=== PATIENT | female | born 1945 | race Caucasian/White ===

== ENCOUNTER 2019-08-19 12:05 | Emergency (ER) | payer MEDICARE, OTHER, SELFPAY ==
[2019-08-19 12:08] VITALS: BP 125/74; PULSE 80; RESP 18; TEMP 36.6; O2SAT 100; BMI 23.9
[2019-08-19 12:37] LABS: Absolute Lymphocyte Count 2.02 X10^3/uL (0.83-4.51); Basophil# 0.04 X10^3/uL; Basophil% 0.8 % (0-1); Eosinophil# 0.27 X10^3/uL; Eosinophils% 5.7 % (0-5); Hematocrit 39.8 % (37-47); Hemoglobin 13.1 g/dL (12.0-15.0); Lymphocyte # 2.02 X10^3/ul (4.0); Lymphocyte % 42.5 % (19-41); Mean Corp Hgb Conc 32.9 g/dL (32-36); Mean Corpuscular Hgb 32.4 pg (27.0-32.0); Mean Corpuscular Volume 98.5 fL (81-99); Mean Platelet Vol. 9.7 fl (6.2-12.0); Monocyte# 0.37 X10^3/uL; Monocyte% 7.8 % (0-10); NRBC Flagged by Analyzer 0 % (0-5); Neutrophil # 2.03 X10^3/uL (2.7-7.7); Neutrophil % 42.8 % (47-70); Platelet Count 236 K/mm3 (150-450); RBC Distribution Width CV 12.7 % (11.6-14.6); RBC Distribution Width SD 45.9 fl (35.1-43.9); Red Blood Count 4.04 M/mm3 (4.2-5.4); White Blood Count 4.8 K/mm3 (4.4-11.0)
[2019-08-19 12:40] VITALS: BP 121/80; PULSE 88; RESP 23; O2SAT 100
[2019-08-19 12:56] VITALS: BP 122/97; BP 125/77; BP 129/89; PULSE 81; PULSE 83
[2019-08-19 12:57] LABS: International Normalized Ratio 2.4; Prothrombin Time (Protime)PT. 25.8 SECONDS (11.7-14.9)
[2019-08-19 12:58] LABS: Partial Thromboplast Time 32.5 Seconds (24.1-36.2)
[2019-08-19 13:05] LABS: Anion Gap 6 (5-15); BUN 11 mg/dL (7-18); BUN/Creat Ratio 12.7 RATIO (10-20); Calcium,Total 9.7 mg/dL (8.5-10.1); Chloride 109 mmol/L (98-107); Creatinine, Serum 0.87 mg/dL (0.55-1.02); EST Glomerular Filtration Rate 68 mL/min (>60); Est Glom Filt Rate - Afr Amer 82 mL/min (>60); Estimated Creatinine Clearance 47.64 ml/min; Glucose 92 mg/dL (74-106); Potassium 3.4 mmol/L (3.5-5.1); Sodium Level 141 mmol/L (136-145)
--- NOTE | 2019-08-19 13:32 | ED.VISSUMM ---
- ER Visit Summary Date of Service: 08/19/19 Chief Complaint: Blood in stool History of Present Illness: The patient is a [address] Dias. She is on Coumadin for atrial fibrillation. She reports that twice a week she takes Dulcolax because otherwise she remains constipated. This morning she had a formed stool without blood. That she then had a loose stool that had bright red blood mixed with it. She denies any rectal pain. She does report that she has a cramping suprapubic pain is 10 on 10 at worst and 4-10 currently. Is worsened by nothing relieved by nothing. She had a colonoscopy in October [address] Emery. She denies any other complaints. Physical Examination: Vitals: Stable. Afebrile. General: Well-nourished and well-developed. Head: Normocephalic atraumatic. Neck: Supple, no lymphadenopathy. No JVD. Nontender. Cardiovascular: Regular rate and rhythm. No murmurs. Respiratory: No respiratory distress. Clear to auscultation bilaterally. Abdominal: Soft, nontender, nondistended, normal bowel sounds. No guarding, rebound, or peritoneal signs. Rectal: She has a hemorrhoid at 12:00 that appears to be the source of the bleeding. Back: Nontender. Extremities: Nontender, no edema. Skin: Normal color, no rash. Neurologic: Alert and oriented ?3. Cranial nerves II through XII are intact. Normal strength and sensation. Psych: Normal affect. Test Results: CBC shows a hemoglobin of 13.1. This was actually 11.1 July 27, 2017 which the last CBC we have. Chem-7 shows a potassium of 3.4 and chloride of 109. INR is 2.4. PTT is 32.5. Emergency Department Course and Treatment: Patient had negative orthostatic vital signs. She is resting comfortably. Treatment Plan: I had a prolonged scratch the patient by treatment options. She does understand that if she was admitted to the hospital we would essentially just repeat her hemoglobin. She does not want to do this. She understands that if she has worsening bleeding at home that she can come back to the hospital he be admitted at any time. Otherwise she is instructed to follow-up Dr. Emery soon as possible. Follow-up with Dr. Dias in 3 to 5 days for repeat hemoglobin. Disposition: To home in improved and stable condition. Impression: 1. Stable lower GI bleed. 2. Coumadin coagulopathy. This note was generated with [employer] dictation software. It may contain incorrect words, spelling, and punctuation that were not noted in review of the chart prior to signing ED Disposition - Plan for ED Patient: Disposition: Home or Assisted Living Instructions: RECTAL BLEED, Stable Referrals: Ilia Stone DO [Primary Care Provider] - 3-5 Days Kwaku Emery MD [NON-STAFF] - As soon as possible
== END 2019-08-19 13:46 | disposition home or self-care (01) ==
PROVIDERS: Emergency Provider Emergency Medicine; Family Provider Preventive Medicine Occupational Medicine; PCP Preventive Medicine Occupational Medicine
DX: K92.1 Melena (principal); T45.515A Adverse effect of anticoagulants, initial encounter; I48.91 Unspecified atrial fibrillation; I25.10 Atherosclerotic heart disease of native coronary artery without angina pectoris; K59.00 Constipation, unspecified; Z95.1 Presence of aortocoronary bypass graft; Z95.0 Presence of cardiac pacemaker; Z79.01 Long term (current) use of anticoagulants; Z79.899 Other long term (current) drug therapy; Z86.73 Personal history of transient ischemic attack (TIA), and cerebral infarction without residual deficits
CPT/HCPCS: 80048; 85025; 85610; 85730; 96360; 99285; J7040; A4216

== ENCOUNTER 2020-08-07 08:46 | Inpatient (IN) | payer MEDICARE, OTHER, SELFPAY ==
[2020-08-07] VITALS (9 sets, daily range): BP systolic 108–118; BP diastolic 62–80; PULSE 70; RESP 15–23; TEMP 36.1–37.6; O2SAT 90–98; BMI 23.9; BMI 24.3; BMI 24.4
--- NOTE | 2020-08-07 09:13 | ED.DCSUM_ITS ---
- ER Visit Summary Date of Service: 08/07/20 Chief Complaint: Generalized weakness. I think I have Covid. History of Present Illness: The patient is a 74 F 3 of the pretension, CAD, high cholesterol and hypothyroidism. Also A. fib on Coumadin. Prior CABG. Patient states for last 11 days she had generalized weakness. Fever as high as 101 with chills. Mild dyspnea. No significant cough. No nausea, vomiting or diarrhea. No melena. No abdominal pain. She denies any dysuria. She lives at home with her . She does not have any known Covid exposure. Physical Examination: Older female no acute distress. Vital signs stable she is borderline hypoxic with a pulse ox of 90%. She is in no distress. Afebrile. HEENT exam unremarkable. Moist mucous membranes. Neck nontender no lymphadenopathy. Lungs clear to auscultation bilaterally. Heart A. fib rate about 70. No murmur. Abdomen soft nontender normal bowel sounds no peritoneal signs. Patient moving all 4 extremities. Nontender. No edema. Equal symmetrical client partner strength. Dorsi plantarflexion intact. Back nontender. Neurologically she is awake and alert with no focal motor deficits. When I walked in the room patient was in a wheelchair she did need my assistance to stand up and get in the bed. Test Results: Chest x-ray portable 1 view shows infiltrates on the right side consistent with Covid. Also left-sided pacer defibrillator. This was also interpreted by the radiologist along with me and agrees. There is also chronic changes. CBC shows a white count of 3. Hemoglobin 12. No bands. Chemistries show a hyponatremia sodium 129. Normal BUN, creatinine and gap. Liver enzymes elevated alk phos of 172. PT/INR both elevated at 72 and 8.7 for a supratherapeutic coagulopathy. Again she is on Coumadin. Lactate normal. 1.7.-Antigen Covid test is positive. Emergency Department Course and Treatment: Her female pulse ox of 90% is consistent with hypoxia with [id number] symptoms. After her sodium returned she will be started on normal saline IV. Treatment Plan: Repeat exam no change. Patient is generally weak which is overall prior from her Covid. She is also hyponatremic. I do not think she will do well at home. And I will asked the hospitalist to admit her. Disposition: Admission Impression: Acute generalized weakness COVID-19 positive pneumonitis with hypoxia Supratherapeutic coagulopathy Hyponatremia History of A. fib on Coumadin History of prior CABG This note was generated with [employer] dictation software. It may contain incorrect words, spelling, and punctuation that were not noted in review of the chart prior to signing ED Disposition - Plan for ED Patient: Referrals: Ilia Stone DO [Primary Care Provider] -
[2020-08-07 09:58] LABS: Absolute Lymphocyte Count 0.89 X10^3/uL (0.83-4.51); Absolute Neutrophil Count 2.7 X10^3/uL (2.0-7.7); Basophil# 0.01 X10^3/uL; Basophil% 0.3 % (0-1); Eosinophil# 0.01 X10^3/uL; Eosinophils% 0.3 % (0-5); Hematocrit 35.2 % (37-47); Lymphocyte # 0.89 X10^3/ul (4.0); Lymphocyte % 23.3 % (19-41); Mean Corp Hgb Conc 34.1 g/dL (32-36); Mean Corpuscular Hgb 32.8 pg (27.0-32.0); Mean Corpuscular Volume 96.2 fL (81-99); Mean Platelet Vol. 10.7 fl (6.2-12.0); Monocyte# 0.15 X10^3/uL; Monocyte% 3.9 % (0-10); NRBC Flagged by Analyzer 0 % (0-5); Neutrophil # 2.74 X10^3/uL (2.7-7.7); Neutrophil % 71.7 % (47-70); Platelet Count 242 K/mm3 (150-450); RBC Distribution Width CV 13.1 % (11.6-14.6); RBC Distribution Width SD 46.6 fl (35.1-43.9); Red Blood Count 3.66 M/mm3 (4.2-5.4); White Blood Count 3.8 K/mm3 (4.4-11.0)
--- NOTE | 2020-08-07 10:02 | RAD_ITS ---
STUDY: X-RAY CHEST REASON FOR EXAM: Female, 74 years old. LOSS OF TASTE AND SMELL X 11 DAYS, COUGH TECHNIQUE: Single AP portable view of the chest. COMPARISON: None. FINDINGS: EKG electrodes are seen. Mild increased markings with areas of confluence in the peripheral aspect of the right upper lobe as well as in the right middle lobe. The left lung is clear. There is no demonstrated pleural abnormality. Sternal cerclage wires and vascular clips are present from a prior sternotomy and coronary artery bypass graft procedure (CABG). A left-sided dual-chamber pacemaker is seen. Mild cardiomegaly. Normal mediastinum and nickolas. Normal visualized pulmonary arteries. There is atherosclerotic tortuosity of the aortic arch and descending thoracic aorta. Normal visualized thoracic spine. Normal visualized ribs, clavicles, and shoulders. There is no demonstrated abnormality of the visualized soft tissue structures of the upper abdomen. RAD/Chest 1 View (Portable) IMPRESSION: Mild increased markings with areas of confluence in the peripheral aspect of the right upper lobe as well as in the right middle lobe. Follow-up is recommended. Electronically Signed: Emir Garcia, at 10:40 EST , Service support ,
[2020-08-07 10:06] LABS: Prothrombin Time (Protime)PT. 72.9 SECONDS (11.7-14.9)
[2020-08-07 10:12] LABS: International Normalized Ratio 8.7
[2020-08-07 10:15] LABS: ALB/GLOB Ratio 0.8 RATIO (0.9-2.4); AST(SGOT) 50 U/L (15-37); Alanine Aminotransfer ALT/SGPT 30 U/L (13-56); Albumin, Serum 3.1 g/dL (3.2-5.0); Alkaline Phosphatase 172 U/L (45-117); Anion Gap 7 (5-15); BUN 8 mg/dL (7-18); BUN/Creat Ratio 10.1 RATIO (10-20); Calcium,Total 9.4 mg/dL (8.5-10.1); Chloride 96 mmol/L (98-107); Creatinine, Serum 0.79 mg/dL (0.55-1.02); EST Glomerular Filtration Rate 75 mL/min (>60); Est Glom Filt Rate - Afr Amer 91 mL/min (>60); Estimated Creatinine Clearance 40.83 ml/min; Globulin 3.8 g/dL (2.2-4.2); Glucose 86 mg/dL (74-106); Potassium 3.9 mmol/L (3.5-5.1); Protein, Total 6.9 g/dL (6.4-8.2); Sodium Level 129 mmol/L (136-145)
[2020-08-07 10:34] LABS: Lactic Acid 1.7 mmol/L (0.4-1.9)
--- NOTE | 2020-08-07 11:22 | HP.PCM_ITS ---
History of Present Illness Date of Admission: 08/07/20 Chief Complaint: weakness, The patient is a 74 year old F with a past medical history as outlined was admitted through the ED on 08/07/2020 with a complaint of generalized weakness as well as an antecedent history of fever and mild shortness of breath. Patient says she thinks she has Covid. She had had the symptoms as mentioned for 11 days prior to admission and said her fever was as high as 101 Fahrenheit with chills as well as mild dyspnea. However she denied any cough, palpitations or dizziness, nausea vomiting or diarrhea. Review of systems otherwise negative. On admission in the ED, pulse ox was 90% on room air. It will show temperature of 97.3 Fahrenheit with blood pressure 112/64, pulse rate of 70 and respiratory rate of 23. Chemistry showed sodium of 129 with potassium of 3.9. AST mildly elevated at 50 and ALP was 172 but ALT was within normal limits. CBC shows WBC of 3.8 and hemoglobin of 12 with platelets of 242. Chest x-ray showed mild increased markings with areas of confluence in the peripheral aspect of the right upper lobe as well as in the right middle lobe. Covid antigen test done was positive. She is being admitted to be managed for COVID-19 infection. [] Past Medical History Allergies fentanyl Allergy (Verified 08/07/20 08:50) Other MADE ME BREATHE LESS nitrofurantoin [From Macrodantin] Allergy (Verified 08/07/20 08:50) Unknown Sulfa (Sulfonamide Antibiotics) Allergy (Verified 08/07/20 08:50) Unknown Home Medications: Ambulatory Orders Medication Instructions Recorded Atorvastatin Calcium [Lipitor] 10 mg PO QHS 08/19/19 Levothyroxine Sodium 100 mcg PO DAILY 08/19/19 Lorazepam 1 mg PO BID PRN 08/19/19 Primidone 250 mg PO BID 08/19/19 Propranolol HCl 20 mg PO QHS 08/19/19 Propranolol HCl [Inderal] 10 mg PO DAILY 08/19/19 Warfarin Sodium 15 mg PO DAILY 08/19/19 Ascorbic Acid [Vitamin C] 500 mg PO DAILY 08/07/20 Aspirin [Aspirin, Baby] 81 mg PO DAILY@0800 08/07/20 Latanoprost [Xalatan] 2.5 ml OP DAILY 08/07/20 Paroxetine [Paxil] 40 mg PO DAILY 08/07/20 Psychiatric History: No pertinent psych hx Lives: Spouse/ Significant Other Smoking Status: Never smoker Alcohol: None Drugs: None - *Family History Maternal History Items: No pertinent history Review of Systems Constitutional: Reports: Anorexia, Chills, Fever, Malaise, Weakness, Fatigue Eyes: Denies: Blurred vision HEENT: Denies: Head Aches, Sinus Congestion, Sinus Drainage Cardiovascular: Denies: Chest Pain, Palpitations Respiratory: Reports: Shortness of Breath. Denies: Cough, Shortness of breath at rest, Shortness of breath upon exertion, Sputum production, Wheezing Gastrointestinal: Denies: Abdominal Pain, Nausea, Vomiting Genitourinary: Denies: Dysuria Musculoskeletal: Denies: Joint Pain, Joint Tenderness Skin: Denies: Rash, Wounds Neurological: Denies: Numbness, Tingling, Focal weakness Psychiatric: Denies: Anxiety, Depression, Homicidal Ideations, Suicidal Ideations Hematologic/ Lymphatic: Denies: Easy Bruising, Easy Bleeding VTE Information - Inpt Only VTE Present on Admission: No VTE Pharm Prophylaxis ordered?: No Reason prophylaxis not ordered:: Medical Contraindication - supratherapeutic INR Patient Problems: Active and Suspected Problems COVID-19 (Acute) - Physical Exam Vitals/I&O's: Vital Signs Temp Pulse Resp BP Pulse Ox 97.3 F L 70 23 H 112/64 96 08/07/20 09:49 08/07/20 09:49 08/07/20 09:49 08/07/20 09:49 08/07/20 09:49 Oxygen Delivery Method Room Air Weight: 135 lb Body Mass Index (BMI) 23.9 General: Alert, Oriented x3, Cooperative, Lethargic HEENT: Atraumatic, PERRLA, EOMI, Normocephalic Oral: Dry Mucosa Neck: Supple, No JVD, Negative Carotid Bruits Lungs: - - diminished breath sounds bibasally, no wheezes or crackles. on room air Cardiovascular: Regular rate, Regular Rhythm, Normal S1, Normal S2, No murmurs Abdomen: Bowel Sounds Present, Soft, Non Tender, Non-Distended, No Hepato- splenomegaly Extremities: No clubbing, No cyanosis, No edema, Capillary Refill Less than 3 Seconds Skin: No rashes, No breakdown Musculoskeletal: No Tenderness to Palpation of Joints or Extremities Lymphatic: No Cervical, Supraclavicular, or Inguinal Adenopathy Neurological: Cranial nerves II-XII grossly intact, Neuro grossly intact, Motor Exam 5/5 strength throughout Psych/Mental Status: Normal Affect, Appropriate, Alert and oriented to time, place, person, mood and affect Microbiology Past 72 Hours 08/07/20 09:40 Mucosa - Nose SARS-CoV-2 Antigen (Rapid) - Final SARS-CoV-2 (COVID 19) Laboratory Results 08/07/20 03:35: PT 72.9 H, INR 8.7 H* 08/07/20 09:35: WBC 3.8 L, RBC 3.66 L, Hgb 12.0, Hct 35.2 L, MCV 96.2, MCH 32.8 H, MCHC 34.1, RDW Std Deviation 46.6 H, RDW Coeff of Ashley 13.1, Plt Count 242, MPV 10.7, Immature Gran % (Auto) 0.500, Neut % (Auto) 71.7 H, Lymph % (Auto) 23.3, [place] % (Auto) 3.9, Eos % (Auto) 0.3, Baso % (Auto) 0.3, Absolute Neuts (auto) 2.7, Absolute Lymphs (auto) 0.89, Nucleated RBC % 0 08/07/20 09:35: Sodium 129 L, Potassium 3.9, Chloride 96 L, Carbon Dioxide 26.0, Anion Gap 7, BUN 8, Creatinine 0.79, Estim Creat Clear Calc 40.83, Est GFR (MDRD) Af Amer 91, Est GFR (MDRD) Non-Af 75, BUN/Creatinine Ratio 10.1, Glucose 86, Calcium 9.4, Total Bilirubin 0.30, AST 50 H, ALT 30, Alkaline Phosphatase 172 H, Total Protein 6.9, Albumin 3.1 L, Globulin 3.8, Albumin/Globulin Ratio 0.8 L 08/07/20 09:35: Lactic Acid 1.7 Diagnostic Data Chest X-Ray 08/07/20 10:02 IMPRESSION: Mild increased markings with areas of confluence in the peripheral aspect of the right upper lobe as well as in the right middle lobe. Follow-up is recommended. Electronically Signed: Emir Garcia, at 10:40 EST , Service support , Current Medications Dexamethasone (Dexamethasone 4 Mg Tablet) 6 mg PO DAILY [facility] Sodium Chloride () 1,000 mls @ 150 mls/hr IV .[id number] [facility] Assessment/Plan All Active Problems COVID-19 (Acute) 74 y/o admitted with a complaint of weakness and shortness of breath #Debillty due to COVID 19 infection * To COVID-19 cohort unit. * Hydrate with IV fluids normal saline. * Consult ID to determine start of remdesivir and whether she received convalescent plasma. * Start IV Decadron 6 mg daily. * Titrate oxygen as needed to maintain saturation above 90%. * Breathing treatments with bronchodilators. * PT/OT consult * #COVID-19 infection: As above #Supratherapeutic INR: INR is 8.7. No evidence of bleeding. Hold Coumadin and give 2.5 of vitamin K. #A. fib: Rate controlled. Coumadin on hold on account of supratherapeutic INR. Continue propranolol. #Hypothyroidism: On Synthroid #Hyperlipidemia: On statin VT prophylaxis: Not indicated as INR is supratherapeutic CODE STATUS:full code * Patient counseled extensively about different types of CODE STATUS including full code, DNR CCA and DNR CCA. Patient elects to be full code. * Total [id number] time 17 minutes. Inpatient E&M: 88859 Init Hosp L3 Procedures: 51450 Advncd Care Plan 30 Min
[2020-08-07] MEDS: 0.9% Normal Saline 1,000 ML 150 ML IV ×3 (11:33→23:59)
[2020-08-07] MEDS: dexAMETHasone 4 MG Tablet 6 MG PO (12:02)
--- NOTE | 2020-08-07 12:57 | PCM.HP.ID ---
Problem List (1) COVID-19 Status: Acute Reason for Consult: covid Consulted by: Dr. Trammell History of Present Illness: The patient is a 74 year old F presented to ED this AM with 11 days of fatigue, aches, change in taste/smell, fever, chills, sore throat, and dyspnea. Sats in low 90s in ED. Lives with who is feeling fine, has not been tested. Given dex, admitted to the floor. INR was high. Full ROS performed and neg except as noted above. - Medical History Surgical History: reviewed Allergies/Adverse Reactions: Allergies fentanyl Allergy (Verified 08/07/20 08:50) Other MADE ME BREATHE LESS nitrofurantoin [From Macrodantin] Allergy (Verified 08/07/20 08:50) Unknown Sulfa (Sulfonamide Antibiotics) Allergy (Verified 08/07/20 08:50) Unknown Home Medications: Ambulatory Orders Medication Instructions Recorded Atorvastatin Calcium [Lipitor] 10 mg PO QHS 08/19/19 Levothyroxine Sodium 100 mcg PO DAILY 08/19/19 Lorazepam 1 mg PO BID PRN 08/19/19 Primidone 250 mg PO BID 08/19/19 Propranolol HCl 20 mg PO QHS 08/19/19 Propranolol HCl [Inderal] 10 mg PO DAILY 08/19/19 Warfarin Sodium 15 mg PO DAILY 08/19/19 Ascorbic Acid [Vitamin C] 500 mg PO DAILY 08/07/20 Aspirin [Aspirin, Baby] 81 mg PO DAILY@0800 08/07/20 Latanoprost [Xalatan] 2.5 ml OP DAILY 08/07/20 Paroxetine [Paxil] 40 mg PO DAILY 08/07/20 - Social History Tobacco Use: non-smoker Vital Signs Temp Pulse Resp BP Pulse Ox 98.6 F 70 21 H 115/62 98 08/07/20 12:00 08/07/20 12:00 08/07/20 12:00 08/07/20 12:00 08/07/20 12:00 Oxygen Delivery Method Room Air Weight: 61.235 kg Body Mass Index (BMI) 23.9 Microbiology Past 72 Hours 08/07/20 09:40 SARS-CoV-2 Antigen (Rapid) - Final Mucosa - Nose SARS-CoV-2 (COVID 19) Laboratory Tests Past 24 Hrs 08/07/20 08/07/20 08/07/20 03:35 09:35 09:35 WBC 3.8 L RBC 3.66 L Hgb 12.0 Hct 35.2 L MCV 96.2 MCH 32.8 H MCHC 34.1 RDW Std Deviation 46.6 H RDW Coeff of Ashley 13.1 Plt Count 242 MPV 10.7 Immature Gran % (Auto) 0.500 Neut % (Auto) 71.7 H Lymph % (Auto) 23.3 [place] % (Auto) 3.9 Eos % (Auto) 0.3 Baso % (Auto) 0.3 Absolute Neuts (auto) 2.7 Absolute Lymphs (auto) 0.89 Nucleated RBC % 0 PT 72.9 H INR 8.7 H* Sodium 129 L Potassium 3.9 Chloride 96 L Carbon Dioxide 26.0 Anion Gap 7 BUN 8 Creatinine 0.79 Estim Creat Clear Calc 40.83 Est GFR (MDRD) Af Amer 91 Est GFR (MDRD) Non-Af 75 BUN/Creatinine Ratio 10.1 Glucose 86 Lactic Acid Calcium 9.4 Total Bilirubin 0.30 AST 50 H ALT 30 Alkaline Phosphatase 172 H Total Protein 6.9 Albumin 3.1 L Globulin 3.8 Albumin/Globulin Ratio 0.8 L 08/07/20 09:35 WBC RBC Hgb Hct MCV MCH MCHC RDW Std Deviation RDW Coeff of Ashley Plt Count MPV Immature Gran % (Auto) Neut % (Auto) Lymph % (Auto) [place] % (Auto) Eos % (Auto) Baso % (Auto) Absolute Neuts (auto) Absolute Lymphs (auto) Nucleated RBC % PT INR Sodium Potassium Chloride Carbon Dioxide Anion Gap BUN Creatinine Estim Creat Clear Calc Est GFR (MDRD) Af Amer Est GFR (MDRD) Non-Af BUN/Creatinine Ratio Glucose Lactic Acid 1.7 Calcium Total Bilirubin AST ALT Alkaline Phosphatase Total Protein Albumin Globulin Albumin/Globulin Ratio - Other Studies Radiology: [] reviewed Other Studies: [] Route of nutrition/ use of supplements: [] Nutritional Intake: [] IV Site: [] Kessler Catheter: [] - Physical Exam General: Alert, Oriented x3, Cooperative, No apparent distress HEENT: Atraumatic, PERRLA, EOMI Neck: Supple, No Nodes Lungs: Diminished Cardiovascular: Regular rate, Regular Rhythm Abdomen: Soft, Non Tender, Non-Distended Extremities: No edema Skin: No rashes IV Site: Peripheral, without redness Musculoskeletal: No Tenderness to Palpation of Joints or Extremities Neurological: Cranial nerves II-XII grossly intact - Assessment/Plan Antibiotics: [] Assessment/Plan: [] covid with hypoxia - sx started around 07/27, on dex, will start remdesivir. Recommend quarantine. INR supratherapeutic. Will follow, thank you
[2020-08-07 13:25] LABS: BNP,B-Type NATRIURETIC PEPTIDE 290.9 pg/mL (0-100)
[2020-08-07] MEDS: Acetaminophen 325 MG Tablet 650 MG PO (17:19)
[2020-08-07] MEDS: Phytonadione (Vit K1) 5 MG TABLET 2.5 MG PO (21:04)
[2020-08-07] MEDS: Latanoprost 0.005% 1 Bottle 1 DRP EACH EYE (21:04)
[2020-08-07] MEDS: Primidone 250 MG Tablet PO (21:05)
[2020-08-07] MEDS: Atorvastatin Calcium 10 MG Tablet PO (21:05)
[2020-08-07] MEDS: Propranolol 10 MG Tablet 20 MG PO (21:05)
[2020-08-07] MEDS: LORazepam 1 MG Tablet PO (21:09)
[2020-08-08] VITALS (14 sets, daily range): BP systolic 115–121; BP diastolic 59–96; PULSE 62–71; RESP 18–22; TEMP 36.2–37.9; O2SAT 94–100
[2020-08-08] MEDS: Acetaminophen 325 MG Tablet 650 MG PO (03:25)
[2020-08-08 05:27] LABS: Absolute Lymphocyte Count 0.77 X10^3/uL (0.83-4.51); Basophil# 0.01 X10^3/uL; Basophil% 0.3 % (0-1); Eosinophil# 0.07 X10^3/uL; Eosinophils% 2.3 % (0-5); Hematocrit 29.7 % (37-47); Lymphocyte # 0.77 X10^3/ul (4.0); Lymphocyte % 25.2 % (19-41); Mean Corp Hgb Conc 33.7 g/dL (32-36); Mean Corpuscular Hgb 32.1 pg (27.0-32.0); Mean Corpuscular Volume 95.2 fL (81-99); Monocyte# 0.18 X10^3/uL; Monocyte% 5.9 % (0-10); NRBC Flagged by Analyzer 0 % (0-5); Neutrophil # 2.02 X10^3/uL (2.7-7.7); Platelet Count 237 K/mm3 (150-450); RBC Distribution Width CV 13.2 % (11.6-14.6); RBC Distribution Width SD 45.9 fl (35.1-43.9); Red Blood Count 3.12 M/mm3 (4.2-5.4); White Blood Count 3.1 K/mm3 (4.4-11.0)
[2020-08-08 05:57] LABS: AST(SGOT) 45 U/L (15-37); Alanine Aminotransfer ALT/SGPT 27 U/L (13-56); Albumin, Serum 2.5 g/dL (3.2-5.0); Alkaline Phosphatase 140 U/L (45-117); Anion Gap 8 (5-15); BUN 8 mg/dL (7-18); BUN/Creat Ratio 17.4 RATIO (10-20); Bilirubin, Direct 0.13 mg/dL (0.00-0.30); Calcium,Total 8.3 mg/dL (8.5-10.1); Chloride 102 mmol/L (98-107); Creatinine, Serum 0.46 mg/dL (0.55-1.02); EST Glomerular Filtration Rate 141 mL/min (>60); Est Glom Filt Rate - Afr Amer 170 mL/min (>60); Estimated Creatinine Clearance 40.83 ml/min; Globulin 2.7 g/dL (2.2-4.2); Glucose 84 mg/dL (74-106); Potassium 3.4 mmol/L (3.5-5.1); Protein, Total 5.2 g/dL (6.4-8.2); Sodium Level 133 mmol/L (136-145)
[2020-08-08] MEDS: dexAMETHasone 4 MG Tablet 6 MG PO (08:58)
[2020-08-08] MEDS: Primidone 250 MG Tablet PO ×2 (08:59→20:39)
[2020-08-08] MEDS: Paroxetine 20 MG Tablet 40 MG PO (08:59)
[2020-08-08] MEDS: Propranolol 10 MG Tablet PO (08:59)
[2020-08-08] MEDS: Ascorbic Acid 500 MG Tablet PO (08:59)
[2020-08-08 10:54] LABS: Prothrombin Time (Protime)PT. 42.5 SECONDS (11.7-14.9)
[2020-08-08 11:07] LABS: International Normalized Ratio 4.5
--- NOTE | 2020-08-08 12:11 | CASEMGMT ---
RN CM Assessment Note Intro role of CM to patient via phone to room. Patient is awake, alert and able to participate in assessment. Pt states she is independent at home and her is able to assist her if needed. She states they have masks/gloves if needed. Discussed quarantine with her and isolation from her is recommended as much as possible if he continues to be asymptomatic. - is asymptomatic and has not been tested. -family can provide groceries etc for them. -discussed home health however pt is declining. She states her weakness is due to the illness and her can help her at home. COVID TESTING: Rapid AG test positive @ [facility] Presentation: weakness, fever, shortness of breath Diagnosis: COVID-19 PCP: Dr. Stone Insurance: [facility]/O Preferred Pharmacy: [place] Prescription Benefit: yes LNOK: Philip Del Castillo Living Arrangements: Lives with in one story home. Independent with ADL/IAD's and does not use DME. Tranportation: drives or family drives DME: cane, shower chair. If oxygen is needed, [employer] preferred. Reviewed list of local DME with patient. HHC: past, does not know name of company. Declining HHC now. Patient DC Goals: Home DC Plan: Home on discharge CM available for discharge planning coordination. Contact CM for any concerns/needs that may arise. Virgilio MAXWELL RN ACM
--- NOTE | 2020-08-08 12:22 | PN_ITS ---
Patient Problems: Active and Suspected Problems COVID-19 (Acute) Subjective: Patient seen and examined. She still complains of feeling short of breath. She denies any cough, palpitations, dizziness, nausea or vomiting. She does admit to feeling weak. Review of systems otherwise negative. Vitals/I&O's: Vital Signs Temp Pulse Resp BP Pulse Ox 98.8 F 69 20 H 116/71 94 08/08/20 08:47 08/08/20 10:00 08/08/20 09:00 08/08/20 08:47 08/08/20 09:00 Oxygen Flow Rate (L/min) 2 Oxygen Delivery Method Nasal Cannula Weight: 137 lb 8.002 oz Body Mass Index (BMI) 24.3 Intake and Output for Last 24 Hours 08/06/20 08/07/20 08/08/20 23:59 23:59 23:59 Intake Total 2352.5 / 2852.5 2680 / 2680 Balance 2352.5 / 2852.5 2680 / 2680 General: Alert, Oriented x3, Cooperative, HEENT: Atraumatic, PERRLA, EOMI, Normocephalic Oral: Dry Mucosa Neck: Supple, No JVD, Negative Carotid Bruits Lungs: - - diminished breath sounds bibasally, no wheezes or crackles. on 2L of oxygen Cardiovascular: Regular rate, Regular Rhythm, Normal S1, Normal S2, No murmurs Abdomen: Bowel Sounds Present, Soft, Non Tender, Non-Distended, No Hepato- splenomegaly Extremities: No clubbing, No cyanosis, No edema, Capillary Refill Less than 3 Seconds Skin: No rashes, No breakdown Musculoskeletal: No Tenderness to Palpation of Joints or Extremities Lymphatic: No Cervical, Supraclavicular, or Inguinal Adenopathy Neurological: Cranial nerves II-XII grossly intact, Neuro grossly intact, Motor Exam 5/5 strength throughout Psych/Mental Status: Normal Affect, Appropriate, Alert and oriented to time, place, person, mood and affect Microbiology Past 72 Hours 08/07/20 09:40 Mucosa - Nose SARS-CoV-2 Antigen (Rapid) - Final SARS-CoV-2 (COVID 19) Laboratory Results 08/07/20 09:35: Troponin I < 0.015 08/07/20 09:35: B-Natriuretic Peptide 290.9 H 08/08/20 03:44: Sodium 133 L, Potassium 3.4 L, Chloride 102, Carbon Dioxide 23.0, Anion Gap 8, BUN 8, Creatinine 0.46 L, Estim Creat Clear Calc 40.83, Est GFR (MDRD) Af Amer 170, Est GFR (MDRD) Non-Af 141, BUN/Creatinine Ratio 17.4, Glucose 84, Calcium 8.3 L, Total Bilirubin 0.40, Direct Bilirubin 0.13, AST 45 H , ALT 27, Alkaline Phosphatase 140 H, Total Protein 5.2 L, Albumin 2.5 L, Globulin 2.7 08/08/20 05:12: WBC 3.1 L, RBC 3.12 L, Hgb 10.0 L, Hct 29.7 L, MCV 95.2, MCH 32.1 H, MCHC 33.7, RDW Std Deviation 45.9 H, RDW Coeff of Ashley 13.2, Plt Count 237, MPV 10.0, Immature Gran % (Auto) 0.300, Neut % (Auto) 66.0, Lymph % (Auto) 25.2, Zapata % (Auto) 5.9, Eos % (Auto) 2.3, Baso % (Auto) 0.3, Absolute Neuts (auto) 2.0, Absolute Lymphs (auto) 0.77 L, Nucleated RBC % 0 08/08/20 05:12: PT 42.5 H, INR 4.5 H* Diagnostic Data Chest X-Ray 08/07/20 10:02 IMPRESSION: Mild increased markings with areas of confluence in the peripheral aspect of the right upper lobe as well as in the right middle lobe. Follow-up is recommended. Electronically Signed: Emir Garcia, at 10:40 EST , Service support , Current Medications Acetaminophen (Acetaminophen 325 Mg Tablet) 650 mg PO Q6H PRN PRN PRN Reason: Pain 1-10 or Fever Last Admin: 08/08/20 03:25 Dose: 650 mg Documented by: Ascorbic Acid (Ascorbic Acid 500 Mg Tablet) 500 mg PO DAILY [facility] Last Admin: 08/08/20 08:59 Dose: 500 mg Documented by: Atorvastatin Calcium (Atorvastatin Calcium 10 Mg Tablet) 10 mg PO QHS [facility] Last Admin: 08/07/20 21:05 Dose: 10 mg Documented by: Bisacodyl (Bisacodyl 5 Mg Tablet) 10 mg PO DAILY PRN PRN Reason: Constipation Dexamethasone (Dexamethasone 4 Mg Tablet) 6 mg PO DAILY [facility] Last Admin: 08/08/20 08:58 Dose: 6 mg Documented by: Remdesivir 100 mg/ Sodium (Chloride) 250 mls @ 125 mls/hr IV DAILY [facility]; Protocol Stop: 08/11/20 11:59 Latanoprost (Latanoprost 0.005% 1 Bottle) 1 drop EACH EYE DAILY@2200 [facility] Last Admin: 08/07/20 21:04 Dose: 1 drop Documented by: Levothyroxine Sodium (Levothyroxine 100 Mcg Tablet) 100 mcg PO DAILY [facility] Lorazepam (Lorazepam 1 Mg Tablet) 1 mg PO BID PRN PRN Reason: ANXIETY Last Admin: 08/07/20 21:09 Dose: 1 mg Documented by: Nitroglycerin (Nitroglycerin (Inpatient Use) 0.4 Mg Tab.Subl) 0.4 mg SUBLINGUAL Q5M PRN PRN Reason: CARDIAC/CHEST PAIN Ondansetron HCl (Ondansetron 4 Mg/2 Ml Vial) 4 mg IV Q8H PRN PRN PRN Reason: NAUSEA/VOMITING Paroxetine HCl (Paroxetine 20 Mg Tablet) 40 mg PO DAILY [facility] Last Admin: 08/08/20 08:59 Dose: 40 mg Documented by: Primidone (Primidone 250 Mg Tablet) 250 mg PO BID [facility] Last Admin: 08/08/20 08:59 Dose: 250 mg Documented by: Propranolol HCl (Propranolol 10 Mg Tablet) 10 mg PO DAILY [facility] Last Admin: 08/08/20 08:59 Dose: 10 mg Documented by: Propranolol HCl (Propranolol 10 Mg Tablet) 20 mg PO QHS [facility] Last Admin: 08/07/20 21:05 Dose: 20 mg Documented by: Sodium Chloride (0.9% Saline Lock 10 Ml Syringe) 10 - 40 ml IV UD PRN PRN Reason: SALINE FLUSH STROKE Vital Signs/Narrative: Vital Signs Temp Pulse Resp BP Pulse Ox 08/08/20 10:00 69 08/08/20 09:00 20 H 94 08/08/20 08:47 98.8 F 70 20 H 116/71 94 Medical Necessity - Tobacco Use Smoking Status: Never smoker Assessment/Plan All Active Problems COVID-19 (Acute) 74 y/o admitted with a complaint of weakness and shortness of breath #Debillty due to COVID 19 infection * still feels weak today * on remdesivir and decadrone * ID on board * titrate oxygen to maintain sats >90% * breathing treatment with bronchodilators * Pt/OT on board * fall precautions * #Acute hypoxic repiratory insufficiency due to COVID 19 infection * now on 2L of oxygen. Titrate oxygen as above * #COVID-19 infection: As above #Supratherapeutic INR: * INR was 8.7 on admission. * Received 2.5 mg of Coumadin. * INR Now down to 4.5 . * no evidence of bleeidng, continue holding coumadin * #A. fib: Rate controlled. Coumadin on hold on account of supratherapeutic INR. Continue propranolol. #Hypothyroidism: On Synthroid #Hyperlipidemia: On statin VT prophylaxis: Not indicated as INR is supratherapeutic CODE STATUS:full code * Inpatient E&M: 63858 Subs Hosp L2
[2020-08-08] MEDS: Bisacodyl 5 MG Tablet 10 MG PO (12:34)
[2020-08-08] MEDS: Levothyroxine 100 MCG Tablet PO (12:34)
--- NOTE | 2020-08-08 14:48 | MDS.RN ---
O2 DECREASED TO 1L NC
--- NOTE | 2020-08-08 16:44 | PN.ID_ITS ---
Patient Problems: Active and Suspected Problems COVID-19 (Acute) Subjective: Feeling better, no fever, no n/v/d. - Physical Exam Vitals/I&O's: Vital Signs Temp Pulse Resp BP Pulse Ox 97.2 F L 70 22 H 118/96 H 94 08/08/20 14:47 08/08/20 14:47 08/08/20 14:47 08/08/20 14:47 08/08/20 15:07 Oxygen Flow Rate (L/min) 1 Oxygen Delivery Method Nasal Cannula Weight: 62.369 kg Body Mass Index (BMI) 24.3 Intake and Output for Last 24 Hours 08/06/20 08/07/20 08/08/20 23:59 23:59 23:59 Intake Total 2352.5 / 2852.5 2680 / 2680 Balance 2352.5 / 2852.5 2680 / 2680 General: Alert, Cooperative, No apparent distress Lungs: Clear to auscultation, Diminished Cardiovascular: Regular rate, Regular Rhythm Abdomen: Soft, Non Tender, Non-Distended Skin: No rashes Microbiology Past 72 Hours 08/07/20 09:40 Mucosa - Nose SARS-CoV-2 Antigen (Rapid) - Final SARS-CoV-2 (COVID 19) Laboratory Results 08/08/20 03:44: Sodium 133 L, Potassium 3.4 L, Chloride 102, Carbon Dioxide 23.0, Anion Gap 8, BUN 8, Creatinine 0.46 L, Estim Creat Clear Calc 40.83, Est GFR (MDRD) Af Amer 170, Est GFR (MDRD) Non-Af 141, BUN/Creatinine Ratio 17.4, Glucose 84, Calcium 8.3 L, Total Bilirubin 0.40, Direct Bilirubin 0.13, AST 45 H , ALT 27, Alkaline Phosphatase 140 H, Total Protein 5.2 L, Albumin 2.5 L, Globulin 2.7 08/08/20 05:12: WBC 3.1 L, RBC 3.12 L, Hgb 10.0 L, Hct 29.7 L, MCV 95.2, MCH 32.1 H, MCHC 33.7, RDW Std Deviation 45.9 H, RDW Coeff of Ashley 13.2, Plt Count 237, MPV 10.0, Immature Gran % (Auto) 0.300, Neut % (Auto) 66.0, Lymph % (Auto) 25.2, Mcclain % (Auto) 5.9, Eos % (Auto) 2.3, Baso % (Auto) 0.3, Absolute Neuts (auto) 2.0, Absolute Lymphs (auto) 0.77 L, Nucleated RBC % 0 08/08/20 05:12: PT 42.5 H, INR 4.5 H* Current Medications Acetaminophen (Acetaminophen 325 Mg Tablet) 650 mg PO Q6H PRN PRN PRN Reason: Pain 1-10 or Fever Last Admin: 08/08/20 03:25 Dose: 650 mg Documented by: Ascorbic Acid (Ascorbic Acid 500 Mg Tablet) 500 mg PO DAILY [facility] Last Admin: 08/08/20 08:59 Dose: 500 mg Documented by: Atorvastatin Calcium (Atorvastatin Calcium 10 Mg Tablet) 10 mg PO QHS [facility] Last Admin: 08/07/20 21:05 Dose: 10 mg Documented by: Bisacodyl (Bisacodyl 5 Mg Tablet) 10 mg PO DAILY PRN PRN Reason: Constipation Last Admin: 08/08/20 12:34 Dose: 10 mg Documented by: Dexamethasone (Dexamethasone 4 Mg Tablet) 6 mg PO DAILY [facility] Last Admin: 08/08/20 08:58 Dose: 6 mg Documented by: Remdesivir 100 mg/ Sodium (Chloride) 250 mls @ 125 mls/hr IV DAILY [facility]; Protocol Stop: 08/11/20 11:59 Last Admin: 08/08/20 14:43 Dose: 125 mls/hr Documented by: Latanoprost (Latanoprost 0.005% 1 Bottle) 1 drop EACH EYE DAILY@2200 [facility] Last Admin: 08/07/20 21:04 Dose: 1 drop Documented by: Levothyroxine Sodium (Levothyroxine 100 Mcg Tablet) 100 mcg PO DAILY [facility] Last Admin: 08/08/20 12:34 Dose: 100 mcg Documented by: Lorazepam (Lorazepam 1 Mg Tablet) 1 mg PO BID PRN PRN Reason: ANXIETY Last Admin: 08/07/20 21:09 Dose: 1 mg Documented by: Nitroglycerin (Nitroglycerin (Inpatient Use) 0.4 Mg Tab.Subl) 0.4 mg SUBLINGUAL Q5M PRN PRN Reason: CARDIAC/CHEST PAIN Ondansetron HCl (Ondansetron 4 Mg/2 Ml Vial) 4 mg IV Q8H PRN PRN PRN Reason: NAUSEA/VOMITING Paroxetine HCl (Paroxetine 20 Mg Tablet) 40 mg PO DAILY [facility] Last Admin: 08/08/20 08:59 Dose: 40 mg Documented by: Primidone (Primidone 250 Mg Tablet) 250 mg PO BID [facility] Last Admin: 08/08/20 08:59 Dose: 250 mg Documented by: Propranolol HCl (Propranolol 10 Mg Tablet) 10 mg PO DAILY [facility] Last Admin: 08/08/20 08:59 Dose: 10 mg Documented by: Propranolol HCl (Propranolol 10 Mg Tablet) 20 mg PO QHS [facility] Last Admin: 08/07/20 21:05 Dose: 20 mg Documented by: Sodium Chloride (0.9% Saline Lock 10 Ml Syringe) 10 - 40 ml IV UD PRN PRN Reason: SALINE FLUSH Medical Necessity - Tobacco Use Smoking Status: Never smoker Route of nutrition/ use of supplements: [] Nutritional Intake: [] IV Site: [] Kessler Catheter: [] - Assessment/Plan Antibiotics: [] Assessment/Plan: [] covid with hypoxia - sx started around 07/27, on dex, remdesivir. Recommend quarantine. INR supratherapeutic on admit. Feeling better. Ok for home to complete 10 total days of dex. Will follow
[2020-08-08] MEDS: Latanoprost 0.005% 1 Bottle 1 DRP EACH EYE (20:39)
[2020-08-08] MEDS: Propranolol 10 MG Tablet 20 MG PO (20:39)
[2020-08-08] MEDS: Atorvastatin Calcium 10 MG Tablet PO (20:39)
[2020-08-08] MEDS: LORazepam 1 MG Tablet PO (21:48)
[2020-08-09] VITALS (13 sets, daily range): BP systolic 105–133; BP diastolic 69–82; PULSE 69–90; RESP 18; TEMP 37–37.2; O2SAT 90–98
[2020-08-09 08:43] LABS: Absolute Lymphocyte Count 0.95 X10^3/uL (0.83-4.51); Absolute Neutrophil Count 2.4 X10^3/uL (2.0-7.7); Basophil# 0.01 X10^3/uL; Basophil% 0.3 % (0-1); Eosinophils% 2.6 % (0-5); Hematocrit 30.5 % (37-47); Hemoglobin 10.3 g/dL (12.0-15.0); Lymphocyte # 0.95 X10^3/ul (4.0); Lymphocyte % 25.1 % (19-41); Mean Corp Hgb Conc 33.8 g/dL (32-36); Mean Corpuscular Hgb 32.8 pg (27.0-32.0); Mean Corpuscular Volume 97.1 fL (81-99); Mean Platelet Vol. 10.2 fl (6.2-12.0); Monocyte# 0.35 X10^3/uL; Monocyte% 9.2 % (0-10); NRBC Flagged by Analyzer 0 % (0-5); Neutrophil # 2.36 X10^3/uL (2.7-7.7); Neutrophil % 62.3 % (47-70); POSITIVE MORPHOLOGY YES; Platelet Count 279 K/mm3 (150-450); RBC Distribution Width CV 13.5 % (11.6-14.6); RBC Distribution Width SD 48.5 fl (35.1-43.9); Red Blood Count 3.14 M/mm3 (4.2-5.4); White Blood Count 3.8 K/mm3 (4.4-11.0)
[2020-08-09 08:48] LABS: Differential Indicated SCAN CRITERIA MET
[2020-08-09 08:57] LABS: Anion Gap 6 (5-15); BUN 6 mg/dL (7-18); BUN/Creat Ratio 13.3 RATIO (10-20); Chloride 103 mmol/L (98-107); Creatinine, Serum 0.45 mg/dL (0.55-1.02); EST Glomerular Filtration Rate 144 mL/min (>60); Est Glom Filt Rate - Afr Amer 174 mL/min (>60); Estimated Creatinine Clearance 40.83 ml/min; Glucose 81 mg/dL (74-106); Potassium 3.6 mmol/L (3.5-5.1); Sodium Level 135 mmol/L (136-145)
[2020-08-09 09:05] LABS: Differential Comment SCANNED; Hypochromasia RARE; Platelet Estimate ADEQUATE (ADEQ)
[2020-08-09] MEDS: Propranolol 10 MG Tablet PO (09:24)
[2020-08-09] MEDS: dexAMETHasone 4 MG Tablet 6 MG PO (09:24)
[2020-08-09] MEDS: Ascorbic Acid 500 MG Tablet PO (09:24)
[2020-08-09] MEDS: Primidone 250 MG Tablet PO ×2 (09:24→20:48)
[2020-08-09] MEDS: Levothyroxine 100 MCG Tablet PO (09:24)
[2020-08-09] MEDS: Paroxetine 20 MG Tablet 40 MG PO (09:25)
[2020-08-09] MEDS: 0.9% Saline Lock 10 ML Syringe IV ×2 (10:55→21:48)
--- NOTE | 2020-08-09 12:29 | PN_ITS ---
Patient Problems: Active and Suspected Problems COVID-19 (Acute) Subjective: Patient seen. SHe still complains of feeling weak. Shortness of breath is improving, though she remains on 2L of oxygen. Review of systems is otherwise negative. She remains on 2L of oxygen. Vitals/I&O's: Vital Signs Temp Pulse Resp BP Pulse Ox 98.8 F 71 18 105/70 96 08/09/20 09:14 08/09/20 10:00 08/09/20 09:14 08/09/20 09:14 08/09/20 09:14 Oxygen Flow Rate (L/min) 2 Oxygen Delivery Method Nasal Cannula Weight: 137 lb 8.002 oz Body Mass Index (BMI) 24.3 Intake and Output for Last 24 Hours 08/07/20 08/08/20 08/09/20 23:59 23:59 23:59 Intake Total 2352.5 / 2852.5 3330 / 3330 980 / 980 Balance 2352.5 / 2852.5 3330 / 3330 980 / 980 General: Alert, Oriented x3, Cooperative, HEENT: Atraumatic, PERRLA, EOMI, Normocephalic Oral: Dry Mucosa Neck: Supple, No JVD, Negative Carotid Bruits Lungs: - - diminished breath sounds bibasally, no wheezes or crackles. on 2L of oxygen Cardiovascular: Regular rate, Regular Rhythm, Normal S1, Normal S2, No murmurs Abdomen: Bowel Sounds Present, Soft, Non Tender, Non-Distended, No Hepato- splenomegaly Extremities: No clubbing, No cyanosis, No edema, Capillary Refill Less than 3 Seconds Skin: No rashes, No breakdown Musculoskeletal: No Tenderness to Palpation of Joints or Extremities Lymphatic: No Cervical, Supraclavicular, or Inguinal Adenopathy Neurological: Cranial nerves II-XII grossly intact, Neuro grossly intact, Motor Exam 5/5 strength throughout Psych/Mental Status: Normal Affect, Appropriate, Alert and oriented to time, place, person, mood and affect Microbiology Past 72 Hours 08/07/20 09:45 Blood Culture (Wb) - Left Forearm Blood Culture - Preliminary No growth in 48 hours. 08/07/20 09:40 Mucosa - Nose SARS-CoV-2 Antigen (Rapid) - Final SARS-CoV-2 (COVID 19) Laboratory Results 08/09/20 08:18: WBC 3.8 L, RBC 3.14 L, Hgb 10.3 L, Hct 30.5 L, MCV 97.1, MCH 32.8 H, MCHC 33.8, RDW Std Deviation 48.5 H, RDW Coeff of Ashley 13.5, Plt Count 279, MPV 10.2, Immature Gran % (Auto) 0.500, Neut % (Auto) 62.3, Lymph % (Auto) 25.1, Bradford % (Auto) 9.2, Eos % (Auto) 2.6, Baso % (Auto) 0.3, Absolute Neuts (auto) 2.4, Absolute Lymphs (auto) 0.95, Nucleated RBC % 0, Differential Comment SCANNED, Platelet Estimate ADEQUATE, Hypochromasia RARE 08/09/20 08:18: Sodium 135 L, Potassium 3.6, Chloride 103, Carbon Dioxide 26.0, Anion Gap 6, BUN 6 L, Creatinine 0.45 L, Estim Creat Clear Calc 40.83, Est GFR (MDRD) Af Amer 174, Est GFR (MDRD) Non-Af 144, BUN/Creatinine Ratio 13.3, Glucose 81, Calcium 9.0 Diagnostic Data Chest X-Ray 08/07/20 10:02 IMPRESSION: Mild increased markings with areas of confluence in the peripheral aspect of the right upper lobe as well as in the right middle lobe. Follow-up is recommended. Electronically Signed: Emir Garcia, at 10:40 EST , Service support , Current Medications Acetaminophen (Acetaminophen 325 Mg Tablet) 650 mg PO Q6H PRN PRN PRN Reason: Pain 1-10 or Fever Last Admin: 08/08/20 03:25 Dose: 650 mg Documented by: Ascorbic Acid (Ascorbic Acid 500 Mg Tablet) 500 mg PO DAILY [facility] Last Admin: 08/09/20 09:24 Dose: 500 mg Documented by: Atorvastatin Calcium (Atorvastatin Calcium 10 Mg Tablet) 10 mg PO QHS [facility] Last Admin: 08/08/20 20:39 Dose: 10 mg Documented by: Bisacodyl (Bisacodyl 5 Mg Tablet) 10 mg PO DAILY PRN PRN Reason: Constipation Last Admin: 08/08/20 12:34 Dose: 10 mg Documented by: Dexamethasone (Dexamethasone 4 Mg Tablet) 6 mg PO DAILY [facility] Last Admin: 08/09/20 09:24 Dose: 6 mg Documented by: Remdesivir 100 mg/ Sodium (Chloride) 250 mls @ 125 mls/hr IV DAILY [facility]; Protocol Stop: 08/11/20 11:59 Last Admin: 08/09/20 10:55 Dose: 125 mls/hr Documented by: Latanoprost (Latanoprost 0.005% 1 Bottle) 1 drop EACH EYE DAILY@2200 [facility] Last Admin: 08/08/20 20:39 Dose: 1 drop Documented by: Levothyroxine Sodium (Levothyroxine 100 Mcg Tablet) 100 mcg PO DAILY [facility] Last Admin: 08/09/20 09:24 Dose: 100 mcg Documented by: Lorazepam (Lorazepam 1 Mg Tablet) 1 mg PO BID PRN PRN Reason: ANXIETY Last Admin: 08/08/20 21:48 Dose: 1 mg Documented by: Nitroglycerin (Nitroglycerin (Inpatient Use) 0.4 Mg Tab.Subl) 0.4 mg SUBLINGUAL Q5M PRN PRN Reason: CARDIAC/CHEST PAIN Ondansetron HCl (Ondansetron 4 Mg/2 Ml Vial) 4 mg IV Q8H PRN PRN PRN Reason: NAUSEA/VOMITING Paroxetine HCl (Paroxetine 20 Mg Tablet) 40 mg PO DAILY [facility] Last Admin: 08/09/20 09:25 Dose: 40 mg Documented by: Primidone (Primidone 250 Mg Tablet) 250 mg PO BID [facility] Last Admin: 08/09/20 09:24 Dose: 250 mg Documented by: Propranolol HCl (Propranolol 10 Mg Tablet) 10 mg PO DAILY [facility] Last Admin: 08/09/20 09:24 Dose: 10 mg Documented by: Propranolol HCl (Propranolol 10 Mg Tablet) 20 mg PO QHS [facility] Last Admin: 08/08/20 20:39 Dose: 20 mg Documented by: Sodium Chloride (0.9% Saline Lock 10 Ml Syringe) 10 - 40 ml IV UD PRN PRN Reason: SALINE FLUSH Last Admin: 08/09/20 10:55 Dose: 10 ml Documented by: STROKE Vital Signs/Narrative: Vital Signs Temp Pulse Resp BP Pulse Ox 08/09/20 10:00 71 08/09/20 09:14 98.8 F 72 18 105/70 96 08/09/20 09:00 18 Medical Necessity - Tobacco Use Smoking Status: Never smoker Assessment/Plan All Active Problems COVID-19 (Acute) 74 y/o admitted with a complaint of weakness and shortness of breath #Debillty due to COVID 19 infection * still feels weak * on remdesivir and decadrone * ID on board * titrate oxygen to maintain sats >90% * breathing treatment with bronchodilators * Pt/OT on board * fall precautions * #Acute hypoxic respiratory insufficiency due to COVID 19 infection * now on 2L of oxygen. Titrate oxygen as above * management as above. #COVID-19 infection: As above #Supratherapeutic INR: * INR was 8.7 on admission and trended down to 4.5 with vitamin K * INR pending today * continue holding coumadin. * * #A. fib: Rate controlled. Coumadin on hold on account of supratherapeutic INR. Continue propranolol. #Hypothyroidism: On Synthroid #Hyperlipidemia: On statin VT prophylaxis: Not indicated as INR is supratherapeutic CODE STATUS:full code * Inpatient E&M: 31793 Subs Hosp L2
[2020-08-09 13:05] LABS: International Normalized Ratio 1.2; Prothrombin Time (Protime)PT. 14.6 SECONDS (11.7-14.9)
[2020-08-09] MEDS: Magnesium Hydroxide 30 ML UDC PO (14:09)
[2020-08-09] MEDS: Atorvastatin Calcium 10 MG Tablet PO (20:48)
[2020-08-09] MEDS: Latanoprost 0.005% 1 Bottle 1 DRP EACH EYE (20:48)
[2020-08-09] MEDS: Propranolol 10 MG Tablet 20 MG PO (20:48)
[2020-08-09] MEDS: LORazepam 1 MG Tablet PO (20:52)
[2020-08-09] MEDS: Ondansetron 4 MG/2 ML Vial IV (21:48)
[2020-08-10] VITALS (10 sets, daily range): BP systolic 107–133; BP diastolic 67–81; PULSE 70–88; RESP 18–20; TEMP 36.3–36.6; O2SAT 90–97
[2020-08-10 08:28] LABS: Absolute Lymphocyte Count 0.85 X10^3/uL (0.83-4.51); Absolute Neutrophil Count 2.5 X10^3/uL (2.0-7.7); Basophil# 0.01 X10^3/uL; Basophil% 0.3 % (0-1); Eosinophil# 0.13 X10^3/uL; Eosinophils% 3.3 % (0-5); Hematocrit 31.7 % (37-47); Hemoglobin 10.4 g/dL (12.0-15.0); Lymphocyte # 0.85 X10^3/ul (4.0); Lymphocyte % 21.6 % (19-41); Mean Corp Hgb Conc 32.8 g/dL (32-36); Mean Corpuscular Hgb 31.4 pg (27.0-32.0); Mean Corpuscular Volume 95.8 fL (81-99); Monocyte# 0.39 X10^3/uL; Monocyte% 9.9 % (0-10); NRBC Flagged by Analyzer 0 % (0-5); Neutrophil # 2.54 X10^3/uL (2.7-7.7); Neutrophil % 64.4 % (47-70); POSITIVE MORPHOLOGY YES; Platelet Count 316 K/mm3 (150-450); RBC Distribution Width CV 13.3 % (11.6-14.6); RBC Distribution Width SD 47.4 fl (35.1-43.9); Red Blood Count 3.31 M/mm3 (4.2-5.4); White Blood Count 3.9 K/mm3 (4.4-11.0)
[2020-08-10 08:29] LABS: Differential Indicated SCAN CRITERIA MET
[2020-08-10 08:48] LABS: Anion Gap 5 (5-15); BUN 6 mg/dL (7-18); BUN/Creat Ratio 13.7 RATIO (10-20); Calcium,Total 9.3 mg/dL (8.5-10.1); Chloride 99 mmol/L (98-107); Creatinine, Serum 0.44 mg/dL (0.55-1.02); EST Glomerular Filtration Rate 149 mL/min (>60); Est Glom Filt Rate - Afr Amer 180 mL/min (>60); Estimated Creatinine Clearance 40.83 ml/min; Glucose 85 mg/dL (74-106); Potassium 3.8 mmol/L (3.5-5.1); Sodium Level 134 mmol/L (136-145)
[2020-08-10] MEDS: Primidone 250 MG Tablet PO (08:50)
[2020-08-10] MEDS: Paroxetine 20 MG Tablet 40 MG PO (08:50)
[2020-08-10] MEDS: dexAMETHasone 4 MG Tablet 6 MG PO (08:50)
[2020-08-10] MEDS: Levothyroxine 100 MCG Tablet PO (08:50)
[2020-08-10] MEDS: Ascorbic Acid 500 MG Tablet PO (08:51)
[2020-08-10] MEDS: Propranolol 10 MG Tablet PO (08:51)
[2020-08-10 10:01] LABS: Reactive Lymphocyte RARE
--- NOTE | 2020-08-10 12:03 | DCINST_ITS ---
- Discharge Diagnoses Current Active Problems: Current Active and Chronic Problems COVID-19 (Acute) You will use the following diet at home:: Cardiac Your food should be the consistency of: Regular Your liquids should be the consistency of: Regular/Thin Discharge Activity: Return to Normal Activity Weight Bearing Status: Weight bearing as tolerated Instructions: Coronavirus Disease 2019 (COVID-19): Overview, Coronavirus Disease 2019 (COVID-19): Caring for Yourself or Others Additional Instructions: remain in self isolation till 10 days after symptoms have all resolved. Allergies/Adverse Reactions: Allergies fentanyl Allergy (Verified 08/07/20 08:50) Other MADE ME BREATHE LESS nitrofurantoin [From Macrodantin] Allergy (Verified 08/07/20 08:50) Unknown Sulfa (Sulfonamide Antibiotics) Allergy (Verified 08/07/20 08:50) Unknown Medications to take at Discharge Atorvastatin Calcium [Lipitor] 10 mg PO QHS 08/19/19 Levothyroxine Sodium 100 mcg PO DAILY 08/19/19 Lorazepam 1 mg PO BID PRN 08/19/19 Primidone 250 mg PO BID 08/19/19 Propranolol HCl 20 mg PO QHS 08/19/19 Propranolol HCl [Inderal (Beta Jeramie)] 10 mg PO DAILY 08/19/19 Ascorbic Acid [Vitamin C] 500 mg PO DAILY 08/07/20 Aspirin [Aspirin, Baby] 81 mg PO DAILY@0800 08/07/20 Latanoprost [Xalatan] 2.5 ml OP DAILY 08/07/20 Paroxetine [Paxil] 40 mg PO DAILY 08/07/20 Dexamethasone [Decadron] 6 mg PO DAILY #6 tab 08/10/20 Warfarin Sodium 10 mg PO DAILY #30 tab 08/10/20 The following prescriptions were given: Dexamethasone [Decadron] 6 mg PO DAILY #6 tab Transmission Status: Pending to [facility]/pharmacy #[id number] Warfarin Sodium 10 mg PO DAILY #30 tab Transmission Status: Pending to [facility]/pharmacy #[id number] Primary Care Physician: Ilia Stone DO [Primary Care Provider] - Please follow up with your Primary Care Physician in: 1-2 weeks Test Results: Test results from this visit will be discussed in further detail at your follow- up appointment, if applicable. Proposed Discharge Date: 08/10/20
--- NOTE | 2020-08-10 12:11 | PCM.DC.SUM ---
Discharge Date and Diagnosis - Problem List Patient Problems: Active and Suspected Problems COVID-19 (Acute) Date of Admission: 08/07/20 Date of Discharge: 08/10/20 - Primary Discharge Diagnosis Acute Problems: Active Problems COVID-19 (Acute) Acute hypoxic respiratory insufficiency due to COVID 19 infection Hospital Course and Treatment Imaging Results: Diagnostic Data Chest X-Ray 08/07/20 10:02 IMPRESSION: Mild increased markings with areas of confluence in the peripheral aspect of the right upper lobe as well as in the right middle lobe. Follow-up is recommended. Electronically Signed: Emir Garcia, at 10:40 EST , Service support , nfectious diseases- Dr Lynn Operations: None Procedures: None Summary of Care Provided: The patient is a 74 year old F with a past medical history as outlined was admitted through the ED on 08/07/2020 with a complaint of generalized weakness as well as an antecedent history of fever and mild shortness of breath. She had had the symptoms as mentioned for 11 days prior to admission and said her fever was as high as 101 Fahrenheit with chills as well as mild dyspnea. However she denied any cough, palpitations or dizziness, nausea vomiting or diarrhea. Review of systems otherwise negative. On admission in the ED, pulse ox was 90% on room air. It will show temperature of 97.3 Fahrenheit with blood pressure 112/64, pulse rate of 70 and respiratory rate of 23. Chemistry showed sodium of 129 with potassium of 3.9. AST mildly elevated at 50 and ALP was 172 but ALT was within normal limits. CBC shows WBC of 3.8 and hemoglobin of 12 with platelets of 242. Chest x-ray showed mild increased markings with areas of confluence in the peripheral aspect of the right upper lobe as well as in the right middle lobe. Covid antigen test done was positive. She was admitted to be managed for COVID-19 infection. Infectious diseases was consulted and patient was started on Decadron and remdesivir. Patient initially required 2 L of oxygen which was gradually weaned off. Patient felt much better and his shortness of breath and lethargy improved significantly. Of note, her INR was also supratherapeutic at 8.7 on admission. This gradually trended down. On day of discharge, INR was 1.2. Patient's Coumadin was therefore reduced from 15 mg daily to 10 mg daily. She was discharged home on 08/10/2020 with a prescription for p.o. Decadron 6 mg daily for 10 days. She is follow-up with her primary care doctor for INR check to maintain her INR between 2 and 3. Patient counseled to self isolate for 10 days after his symptoms are fully resolved. Patient seen and examined prior to discharge. She looked well and felt much better. She had no complaints. Review of symptoms otherwise negative. Labs and vitals reviewed. Home medication reviewed and reconciled. O/E: Vital Signs Temp Pulse Resp BP Pulse Ox 97.4 F L 70 20 H 107/67 90 08/10/20 14:30 08/10/20 14:58 08/10/20 14:30 08/10/20 14:30 08/10/20 15:13 General: Alert, Oriented x3, Cooperative, HEENT: Atraumatic, PERRLA, EOMI, Normocephalic Oral: Dry Mucosa Neck: Supple, No JVD, Negative Carotid Bruits Lungs: - - diminished breath sounds bibasally, no wheezes or crackles. on room air. Cardiovascular: Regular rate, Regular Rhythm, Normal S1, Normal S2, No murmurs Abdomen: Bowel Sounds Present, Soft, Non Tender, Non-Distended, No Hepato-splenomegaly Extremities: No clubbing, No cyanosis, No edema, Capillary Refill Less than 3 Seconds Skin: No rashes, No breakdown Musculoskeletal: No Tenderness to Palpation of Joints or Extremities Lymphatic: No Cervical, Supraclavicular, or Inguinal Adenopathy Neurological: Cranial nerves II-XII grossly intact, Neuro grossly intact, Motor Exam 5/5 strength throughout Psych/Mental Status: Normal Affect, Appropriate, Alert and oriented to time, place, person, mood and affect Patient's pulse oxygen was 90% on room air with ambulation, and at rest was 97%, so she didnt qualify for home oxygen. She is to follow up with her PCP. Patient Problems: Active and Suspected Problems COVID-19 (Acute) - Physical Exam Vitals/I&O's: Vital Signs Temp Pulse Resp BP Pulse Ox 97.3 F L 70 18 113/69 97 08/10/20 08:57 08/10/20 08:57 08/10/20 08:57 08/10/20 08:57 08/10/20 11:08 Oxygen Flow Rate (L/min) [ 0 AMBULATING on Room Air] Oxygen Flow Rate (L/min) 2 Oxygen Delivery Method Room Air Weight: 137 lb 8.002 oz Body Mass Index (BMI) 24.3 Intake and Output for Last 24 Hours 08/08/20 08/09/20 08/10/20 23:59 23:59 23:59 Intake Total 3330 / 3330 2029 / 2430 700 / 700 Balance 3330 / 3330 2029 / 2430 700 / 700 Microbiology Past 72 Hours 08/07/20 09:35 Blood Culture (Wb) - Anticubital Left Blood Culture - Preliminary No growth in 48 hours. 08/07/20 09:45 Blood Culture (Wb) - Left Forearm Blood Culture - Preliminary No growth in 48 hours. 08/07/20 09:40 Mucosa - Nose SARS-CoV-2 Antigen (Rapid) - Final SARS-CoV-2 (COVID 19) Laboratory Results 08/09/20 08:18: PT 14.6, INR 1.2 08/10/20 07:46: WBC 3.9 L, RBC 3.31 L, Hgb 10.4 L, Hct 31.7 L, MCV 95.8, MCH 31.4, MCHC 32.8, RDW Std Deviation 47.4 H, RDW Coeff of Ashley 13.3, Plt Count 316, MPV 10.0, Immature Gran % (Auto) 0.500, Neut % (Auto) 64.4, Lymph % (Auto) 21.6, [place] % (Auto) 9.9, Eos % (Auto) 3.3, Baso % (Auto) 0.3, Absolute Neuts (auto) 2.5, Absolute Lymphs (auto) 0.85, Nucleated RBC % 0, Reactive Lymphocytes RARE 08/10/20 07:46: Sodium 134 L, Potassium 3.8, Chloride 99, Carbon Dioxide 30.0, Anion Gap 5, BUN 6 L, Creatinine 0.44 L, Estim Creat Clear Calc 40.83, Est GFR (MDRD) Af Amer 180, Est GFR (MDRD) Non-Af 149, BUN/Creatinine Ratio 13.7, Glucose 85, Calcium 9.3 Current Medications Acetaminophen (Acetaminophen 325 Mg Tablet) 650 mg PO Q6H PRN PRN PRN Reason: Pain 1-10 or Fever Last Admin: 08/08/20 03:25 Dose: 650 mg Documented by: Ascorbic Acid (Ascorbic Acid 500 Mg Tablet) 500 mg PO DAILY [facility] Last Admin: 08/10/20 08:51 Dose: 500 mg Documented by: Atorvastatin Calcium (Atorvastatin Calcium 10 Mg Tablet) 10 mg PO QHS [facility] Last Admin: 08/09/20 20:48 Dose: 10 mg Documented by: Bisacodyl (Bisacodyl 5 Mg Tablet) 10 mg PO DAILY PRN PRN Reason: Constipation Last Admin: 08/08/20 12:34 Dose: 10 mg Documented by: Dexamethasone (Dexamethasone 4 Mg Tablet) 6 mg PO DAILY [facility] Last Admin: 08/10/20 08:50 Dose: 6 mg Documented by: Remdesivir 100 mg/ Sodium (Chloride) 250 mls @ 125 mls/hr IV DAILY [facility]; Protocol Stop: 08/11/20 11:59 Last Infusion: 08/09/20 13:00 Dose: Infused Documented by: Latanoprost (Latanoprost 0.005% 1 Bottle) 1 drop EACH EYE DAILY@2200 [facility] Last Admin: 08/09/20 20:48 Dose: 1 drop Documented by: Levothyroxine Sodium (Levothyroxine 100 Mcg Tablet) 100 mcg PO DAILY [facility] Last Admin: 08/10/20 08:50 Dose: 100 mcg Documented by: Lorazepam (Lorazepam 1 Mg Tablet) 1 mg PO BID PRN PRN Reason: ANXIETY Last Admin: 08/09/20 20:52 Dose: 1 mg Documented by: Nitroglycerin (Nitroglycerin (Inpatient Use) 0.4 Mg Tab.Subl) 0.4 mg SUBLINGUAL Q5M PRN PRN Reason: CARDIAC/CHEST PAIN Ondansetron HCl (Ondansetron 4 Mg/2 Ml Vial) 4 mg IV Q8H PRN PRN PRN Reason: NAUSEA/VOMITING Last Admin: 08/09/20 21:48 Dose: 4 mg Documented by: Paroxetine HCl (Paroxetine 20 Mg Tablet) 40 mg PO DAILY [facility] Last Admin: 08/10/20 08:50 Dose: 40 mg Documented by: Primidone (Primidone 250 Mg Tablet) 250 mg PO BID [facility] Last Admin: 08/10/20 08:50 Dose: 250 mg Documented by: Propranolol HCl (Propranolol 10 Mg Tablet) 10 mg PO DAILY [facility] Last Admin: 08/10/20 08:51 Dose: 10 mg Documented by: Propranolol HCl (Propranolol 10 Mg Tablet) 20 mg PO QHS [facility] Last Admin: 08/09/20 20:48 Dose: 20 mg Documented by: Sodium Chloride (0.9% Saline Lock 10 Ml Syringe) 10 - 40 ml IV UD PRN PRN Reason: SALINE FLUSH Last Admin: 08/09/20 21:48 Dose: 10 ml Documented by: Discharge Diet: Low fat/ Low Cholesterol Discharge Activity: Return to Normal Activity Weight Bearing Status: Weight bearing as tolerated Home Medications: Medications to take at Discharge Atorvastatin Calcium [Lipitor] 10 mg PO QHS 08/19/19 Levothyroxine Sodium 100 mcg PO DAILY 08/19/19 Lorazepam 1 mg PO BID PRN 08/19/19 Primidone 250 mg PO BID 08/19/19 Propranolol HCl 20 mg PO QHS 08/19/19 Propranolol HCl [Inderal (Beta Jeramie)] 10 mg PO DAILY 08/19/19 Ascorbic Acid [Vitamin C] 500 mg PO DAILY 08/07/20 Aspirin [Aspirin, Baby] 81 mg PO DAILY@0800 08/07/20 Latanoprost [Xalatan] 2.5 ml OP DAILY 08/07/20 Paroxetine [Paxil] 40 mg PO DAILY 08/07/20 Dexamethasone [Decadron] 6 mg PO DAILY #6 tab 08/10/20 Warfarin Sodium 10 mg PO DAILY #30 tab 08/10/20 Following Prescriptions Were Given to Patient: Dexamethasone [Decadron] 6 mg PO DAILY #6 tab Transmission Status: Received by [facility]/pharmacy #[id number] Warfarin Sodium 10 mg PO DAILY #30 tab Transmission Status: Received by [facility]/pharmacy #[id number] Primary Care Physician: Ilia Stone DO [Primary Care Provider] - Please follow up with your Primary Care Physician in: 1-2 weeks Patient Instructions: Coronavirus Disease 2019 (COVID-19): Overview, Coronavirus Disease 2019 (COVID-19): Caring for Yourself or Others Disposition: Home Minutes spent on discharge:: 40 Patient Condition:: Stable Medical Necessity - Tobacco Use Smoking Status: Never smoker Meaningful Use Info Meaningful Use Diagnoses (Choose all that apply): None applicable Inpatient E&M: 21568 Disch Hosp
[2020-08-10] MEDS: 0.9% Saline Lock 10 ML Syringe IV (12:17)
== END 2020-08-10 16:15 | disposition home or self-care (01) | DRG 178 ==
LOC: ED 09:38 → MS2 11:36
PROVIDERS: Admitting Provider Student in an Organized Health Care Education/Training Program; Emergency Provider Emergency Medicine; PCP Preventive Medicine Occupational Medicine; Visit Provider Student in an Organized Health Care Education/Training Program
DX: U07.1 COVID-19 (principal); E87.1 Hypo-osmolality and hyponatremia; I25.10 Atherosclerotic heart disease of native coronary artery without angina pectoris; I48.91 Unspecified atrial fibrillation; E78.00 Pure hypercholesterolemia, unspecified; E03.9 Hypothyroidism, unspecified; R06.89 Other abnormalities of breathing; R09.02 Hypoxemia; R79.1 Abnormal coagulation profile; Z95.1 Presence of aortocoronary bypass graft; Z79.890 Hormone replacement therapy; Z79.01 Long term (current) use of anticoagulants
CPT/HCPCS: 36415; 71045; 80048; 80053; 80076; 83605; 83880; 84484; 85025; 85610; 87040; 87426; 97116; 97162; 97166; 97530; 97535; 99285; J7030; J7050; A4216; J2405

== ENCOUNTER 2020-08-26 07:52 | Emergency (ER) | payer MEDICARE, OTHER, SELFPAY ==
[2020-08-07 12:19] VITALS: BMI 24.3
[2020-08-26 07:53] VITALS: BP 172/98; PULSE 70; RESP 18; TEMP 35.7; O2SAT 99; BMI 23.0
--- NOTE | 2020-08-26 08:08 | ED.VIS.GEN ---
History of Present Illness Chief Complaint: Other, Pain/Inj Informant: Patient Narrative: 74-year-old female states that on Thursday morning she woke with pain in the back of her neck. She states that it feels like a muscle spasm. She states it is worse with any type of movement of the neck. She denies any arm or leg symptoms. She states she did have a slight headache with it. She has been using Tylenol. She is also seeing the chiropractor yesterday without relief. She tells me she has been using warm moist heat. She has been utilizing a soft collar but it is at home. No known trauma. She takes Ativan once a day. - Past Medical History (1) COVID-19 Status: Resolved Past Medical History - Allergies and Home Meds Allergies/Adverse Reactions: Allergies fentanyl Allergy (Verified 08/26/20 07:55) Other MADE ME BREATHE LESS nitrofurantoin [From Macrodantin] Allergy (Verified 08/26/20 07:55) Unknown Sulfa (Sulfonamide Antibiotics) Allergy (Verified 08/26/20 07:55) Unknown Primary Care Physician: Ilia Stone DO [Primary Care Provider] - Past Medical History: - - Atrial fibrillation, hypercholesterolemia, hypothyroidism Surgical History: noncontributory Smoking Status: Never smoker Drugs: None - Family History Maternal Family History: Reports: No pertinent history Review of Systems General: Denies: Chills, Fever, Sweats Eyes: Denies: Visual changes - bilaterally, Diplopia ENT: Denies: Rhinorrhea, Sore throat Cardiovascular: Denies: Chest pain, Palpitations Respiratory: Denies: Dyspnea, Cough, Dyspnea on exertion Gastrointestinal: Denies: Abdominal pain, Nausea, Vomiting, Diarrhea, Melena, Hematochezia Genitourinary: Denies: Dysuria, Hematuria, Frequency Musculoskeletal: Reports: Neck pain. Denies: Back pain, Extremity Pain Skin: Denies: Rash, Wounds Neurological: Reports: Headache. Denies: Weakness, Numbness Physical Exam Vital Signs/Narrative: Vital Signs Temp Pulse Resp BP Pulse Ox 08/26/20 07:53 96.2 F L 70 18 172/98 H 99 Inital Vital Signs reviewed: Yes General: Well nourished, Well developed, No Acute Distress Head: Normocephalic, Atraumatic Eyes: Perrl, EOMI ENT: Moist mucous membranes, No rhinorrhea Neck: - - Patient has limited range of motion due to pain. She keeps her head in a neutral position. She has tenderness in the upper cervical musculature. No rashes. Cardiovascular: Regular rate, Regular rhythm, No murmurs Respiratory: No distress, CTA bilaterally, Chest nontender Abdomen: Soft, Nontender, Nondistended, Normal bowel sounds Back: Nontender, Normal Inspection Extremities: Nontender, No edema Skin: Normal color, No rash Neurological: Alert, Oriented x3, Cranial nerves II-XII grossly intact, Normal Strength, Normal Sensation Psychological: Normal affect, Normal Mood Diagnostic/Tx/Re-eval - Medical Decision Making This appears to be atraumatic neck spasm. I advised the patient that we can add in some muscle relaxant but realistically time will make it better. Encouraged her to use her soft collar and continue the heat. I will add in Valium 2 mg 3 times daily PRN. She was advised that this is a sedating medication. I advised her not to take her Ativan while on Valium. ED Disposition - Plan for ED Patient: Disposition: Home or Assisted Living Diagnosis: Muscle spasms of neck Instructions: ED Neck Spasm, No Trauma Prescriptions: Diazepam [Valium] 2 mg PO TID PRN PRN #10 tab PRN Reason: Vertigo Prescription Printed Referrals: Ilia Stone DO [Primary Care Provider] - 5-7 Days Additional Instructions: Do not take Ativan while you are taking Valium. Continued heat Continue using soft collar.
== END 2020-08-26 08:48 | disposition home or self-care (01) ==
PROVIDERS: Emergency Provider Emergency Medicine; PCP Preventive Medicine Occupational Medicine
DX: M62.838 Other muscle spasm (principal); I48.91 Unspecified atrial fibrillation; E78.00 Pure hypercholesterolemia, unspecified; E03.9 Hypothyroidism, unspecified; Z86.19 Personal history of other infectious and parasitic diseases; Z79.82 Long term (current) use of aspirin; Z79.01 Long term (current) use of anticoagulants; Z79.899 Other long term (current) drug therapy
CPT/HCPCS: 99282

== ENCOUNTER 2021-04-02 08:46 | Day surgery (SDC) | payer MEDICARE, OTHER, SELFPAY ==
--- NOTE | 2021-03-27 12:23 | EKG12_ITS ---
Test Reason : PREOP Blood Pressure : / mmHG Vent. Rate : 070 BPM Atrial Rate : 416 BPM P-R Int : 000 ms QRS Dur : 170 ms QT Int : 454 ms P-R-T Axes : 000 140 142 degrees QTc Int : 490 ms Ventricular-paced rhythm Abnormal ECG Confirmed by DENNY CASTANON, LINDA ([id number]), editor producer DIALLO FRANCIS ([id number]) on 03/29/2021 10:23:30 AM Referred By: Bj Arguello Confirmed By:LINDA BALDWIN MD
[2021-04-02 09:31] VITALS: BP 126/79; PULSE 70; RESP 16; TEMP 36.4; O2SAT 100; BMI 22.9
[2021-04-02] MEDS: Lactated Ringers 1,000 ML 100 ML IV (09:40)
[2021-04-02 10:12] LABS: Anion Gap 3 (5-15); BUN 10 mg/dL (7-18); BUN/Creat Ratio 15.4 RATIO (10-20); Chloride 109 mmol/L (98-107); Creatinine, Serum 0.65 mg/dL (0.55-1.02); EST Glomerular Filtration Rate 95 mL/min (>60); Est Glom Filt Rate - Afr Amer 114 mL/min (>60); Estimated Creatinine Clearance 40.21 ml/min; Glucose 78 mg/dL (74-106); Potassium 3.8 mmol/L (3.5-5.1); Sodium Level 142 mmol/L (136-145)
[2021-04-02 10:16] LABS: INR Fingerstick 2.3; Prothrombin Time Fingerstick 25.8 SEC (11.9-14.4)
--- NOTE | 2021-04-02 10:25 | LES_PTH ---
PATIENT: DANGELO KUMAR LOC: [facility] [place] U#:[id number] AGE/SX: 75/F ROOM: RE04/02/[address]: Dr. Len Arguello MD : 1945 BED: DIS: 04/02/2021 SPEC #: [id number] RECD: 04/02/21 14:34 STATUS: JERRY STANLEY #: [id number] ALAN: 04/02/21 10:[address]: Len Arguello DEPT: SURGICAL PATHOLOGY RECD BY: Candy Juares ENTERED: 04/03/21 08:37 SP TYPE: Lesion OTHR DR: Dr. Ilia Stone DO Tissues: Skin of nose, NOS Procedures: Surgery Specimen Level IV HEADER OPERATION: Excision, nasal lesion PRE-OP DIAGNOSIS: Left nasal lesion TISSUE SUBMITTED: Left nasal lesion MICROSCOPIC DIAGNOSIS Left nasal lesion, excision: A fragment of skin with vascular ectasia and congestion. Solar elastosis. Negative for malignancy. See comment. CHELSEA:kali 04/04/2021 COMMENT Clinical correlation and appropriate follow up are necessary. MICROSCOPIC DESCRIPTION Slides are reviewed. GROSS DESCRIPTION Received in fixative is one container labeled with the patient's name and designated left nasal lesion. The specimen consists of a fragment of bazzi-brown soft tissue measuring 0.3 x 0.2 x 0.1 cm. The specimen is totally submitted in one cassette. / CHELSEA:kali 04/03/21 TC:5 CPT: 60635
[2021-04-02] MEDS: Mupirocin Ointment 22gm Tube 1 APPLIC (11:09)
[2021-04-02] MEDS: Lidocaine 1% /Epi 1:100 (50ml) 50 ML VIAL (11:09)
--- NOTE | 2021-04-02 11:24 | PCM.DC ---
Discharge Instructions Diet Discharge Diet: No restrictions Activity Discharge Activity: Return to Normal Activity Dressing / Incision Call your doctor if your incision/area has: Increased Pain/ Swelling Additional Dressing/Incision Instructions:: mupirocin to nose three times daily for 2 weeks Follow Up Care Please Follow Up With: nayeli When: 1 week Test Results: Test results from this visit will be discussed in further detail at your follow-up appointment, if applicable. Discharge Plan Admission Attending Provider: Bj Arguello Primary Care Provider: Ilia Stone Discharge Orders/Prescriptions Prescriptions: No Action atorvastatin 20 MG tablet 10 mg PO QHS RF: 0 levothyroxine 88 MCG tablet 100 mcg PO DAILY RF: 0 propranolol 10 MG tablet 10 mg PO DAILY RF: 0 primidone 250 MG tablet 250 mg PO BID RF: 0 lorazepam 1 MG tablet 1 mg PO BID PRN (Reason: Anxiety) RF: 0 propranolol 20 MG tablet 20 mg PO QHS RF: 0 latanoprost 2.5 ML drops 2.5 ml OP DAILY RF: 0 aspirin 81 MG tablet,chewable 81 mg PO DAILY@0800 RF: 0 warfarin 10 mg tablet 10 mg PO DIAMOND RF: 0 escitalopram oxalate 20 mg tablet 20 mg PO DAILY RF: 0 warfarin 10 MG tablet 15 mg PO MOTUWETHFRSA RF: 0 Disposition Discharge Orders: Discharge Patient (Routine); Ordered 04/02/21 Ordered By: Dr. Bj Arguello
--- NOTE | 2021-04-02 11:25 | PCM.OPRPT ---
Problems Associated Problem List Diagnoses (1) Mass of nose: Report of Operation Date of Procedure: 04/02/21 Pre-Operative Diagnosis: nasal mass Post-Operative Diagnosis: nasal mass Surgery/Procedure Performed:: excisional biopsy, nasal mass Surgeon: Bj Arguello Type of Anesthesia: General Description of Procedure: on the day of the procedure, after appropriate informed consent was obtained, the patient was brought to the operating room and placed in supine position on the operating table. she was placed under light sedation and the left nasal lesion was injected with lidocaine/epinephrine. an elliptical incision was made with a yomba shoshone blade at the junction of the nasal tip and lateral nasal sidewall on the left, 5mm x 2mm. the area was undermined in all directions with an iris scissor. the incision was closed with 4-0 vicryl and 5-0 nylon. she was trasported to the PACU in stable condition
[2021-04-02 11:31] VITALS: BP 109/79; BP 126/79; PULSE 70; RESP 16; TEMP 36.3; O2SAT 97
[2021-04-02 11:35] VITALS: BP 115/78; BP 126/79; PULSE 70; RESP 16; O2SAT 99
[2021-04-02 11:40] VITALS: BP 124/76; BP 126/79; PULSE 70; RESP 16; O2SAT 100
[2021-04-02 11:45] VITALS: BP 124/87; BP 126/79; PULSE 70; RESP 16; TEMP 36.1; O2SAT 100
[2021-04-02 12:15] VITALS: BP 126/79; BP 135/56; PULSE 70; RESP 16; TEMP 36.2; O2SAT 100
== END 2021-04-02 12:20 | disposition home or self-care (01) ==
LOC: SDC 08:47 → AC 08:47
PROVIDERS: PCP Preventive Medicine Occupational Medicine; Referring Provider Otolaryngology; Visit Provider Otolaryngology
PROC: (CPT 11441; principal; 2021-04-02 10:15)
DX: D48.5 Neoplasm of uncertain behavior of skin (principal); L98.8 Other specified disorders of the skin and subcutaneous tissue; L57.8 Other skin changes due to chronic exposure to nonionizing radiation; I25.10 Atherosclerotic heart disease of native coronary artery without angina pectoris; I48.91 Unspecified atrial fibrillation; E78.00 Pure hypercholesterolemia, unspecified; E07.9 Disorder of thyroid, unspecified; M19.90 Unspecified osteoarthritis, unspecified site; Z95.0 Presence of cardiac pacemaker; Z79.82 Long term (current) use of aspirin; Z79.01 Long term (current) use of anticoagulants; Z79.899 Other long term (current) drug therapy; Z87.891 Personal history of nicotine dependence; Z86.73 Personal history of transient ischemic attack (TIA), and cerebral infarction without residual deficits
CPT/HCPCS: 00300; 11441; 36416; 80048; 85610; 88305; 93005; J7120

== ENCOUNTER 2021-06-21 03:11 | Emergency (ER) | payer MEDICARE, OTHER, SELFPAY ==
[2021-06-21 03:11] VITALS: BP 145/92; PULSE 70; RESP 18; TEMP 36.8; O2SAT 98; BMI 23.4
[2021-06-21] MEDS: Acetaminophen 325 MG Tablet 650 MG PO (03:23)
--- NOTE | 2021-06-21 03:30 | EDS_ITS ---
HPI HPI - Fall History of Present Illness Chief Complaint: Fall Informant: patient Narrative Narrative: 75-year-old female states that she was walking down the hallway of the hospital when the front part of her shoe got stuck and she fell forward landing on her bilateral knees. She states that the left knee does not hurt but the right one buckled when she went to stand. She is on Coumadin. She denies any other injuries [facility] Medical History Alcohol use Arthritis Cardiology follow-up encounter Depression Former smoker High cholesterol History of echocardiogram History of pacemaker History of steroid therapy History of stress test Hx of ovarian cyst Injury of head and neck Migraine headache Shortness of breath on exertion Sleep apnea Thyroid disease TIA (transient ischemic attack) Tremors of nervous system Wears glasses Home Medications atorvastatin 10 mg PO QHS 08/19/19 [History Last Taken Unknown] levothyroxine 100 mcg PO DAILY 08/19/19 [History Last Taken 04/02/21 07:30] lorazepam 1 mg PO BID PRN 08/19/19 [History Last Taken Unknown] primidone 250 mg PO BID 08/19/19 [History Last Taken 04/02/21 07:30] propranolol 10 mg PO DAILY 08/19/19 [History Last Taken Unknown] propranolol 20 mg PO QHS 08/19/19 [History Last Taken Unknown] aspirin 81 mg PO DAILY@0800 08/07/20 [History Last Taken 03/25/21] latanoprost 2.5 ml OP DAILY 08/07/20 [History Last Taken Unknown] escitalopram oxalate 20 mg PO DAILY 03/26/21 [History Last Taken 04/02/21 07:30] warfarin 10 mg PO 03/26/21 [History Last Taken Unknown] warfarin 15 mg PO MOTUWETHFRSA 03/26/21 [History Last Taken Unknown] Allergy/AdvReac Type Severity Reaction Status Date / Time diazepam [From Valium] Allergy Vomiting Verified 06/21/21 03:14 fentanyl Allergy Other Verified 06/21/21 03:14 nitrofurantoin Allergy Unknown Verified 06/21/21 03:14 [From Macrodantin] strawberry Allergy Anaphylaxis Verified 06/21/21 03:14 Sulfa (Sulfonamide Allergy Unknown Verified 06/21/21 03:14 Antibiotics) hydrocodone [From Vicodin] AdvReac Nausea/Vom/ Verified 06/21/21 03:14 Diarrhea Surgical History History of cardiac catheterization History of heart surgery History of open heart surgery Hx laparoscopic cholecystectomy Hx of appendectomy Social History (Updated 06/21/21 @ 03:[address] Cesar Mukherjee DO) Smoking Status: Former smoker substance use type: does not use ROS ROS ED Constitutional Constitutional ED: Denies chills or weight loss Eyes Eyes: Denies change in vision or diplopia ENT ENT ED: Denies ear pain, rhinorrhea or sore throat Cardiovascular Cardiovascular: Denies chest pain, orthopnea, palpitations or racing heartbeat Respiratory/Chest Respiratory/Chest: Denies cough, dyspnea or orthopnea Gastrointestinal Gastrointestinal: Denies abdominal pain, diarrhea, nausea or vomiting Genitourinary Genitourinary ED: Denies dysuria, hematuria or urinary frequency Musculoskeletal Musculoskeletal: Reports other Details: Right knee pain ; Denies arthralgias or myalgias Integumentary Denies abscess or rash Neurologic Neurologic: Denies headache(s) or weakness Psychiatric Psychiatric: Denies anxiety, depression, suicidal ideation or suicidal thoughts Endocrine Endocrinology: Denies polydipsia, polyphagia or polyuria Allergic/Immunologic Allergic/Immunologic ED: Denies mouth swelling, tongue swelling or urticaria EXAM Physical Exam Const Vital Signs: 06/21/21 03:11 06/21/21 03:18 Temperature 98.2 F Temperature Source Temporal Pulse Rate 70 Respiratory Rate 18 Respiratory Effort Normal Blood Pressure 145/92 H Blood Pressure Mean 109 Pulse Ox 98 Oxygen Delivery Method Room Air Room Air Positive well nourished and well developed General Appearance ED: well developed HEENT Reports normocephalic, head/scalp atraumatic and moist mucous membranes Eyes PERRL and EOMs intact bilaterally Neck no lymphadenopathy, supple and no JVD Resp normal respiratory effort and clear to auscultation bilaterally Cardio regular rate, regular rhythm and no murmurs GI normal to inspection, nondistended, normoactive bowel sounds and non-tender Palpation: soft Back/Spine no CVA tenderness and normal ROM Extremity normal to inspection Extremity Narrative: Ligaments appear stable. There is no joint effusion. Extensor mechanism appears intact. General Extremety ED: Negative for edema General Extremity: Negative for edema Neuro oriented x3 and CN's II-XII intact bilaterally Sensorium / Orientation: alert Motor Exam: strength 5/5 throughout Psych mental status grossly normal Mood & Affect: Negative for depressed or tearful Skin no rashes or lesions noted and no wounds MDM MDM MDM Narrative Medical decision making narrative: My interpretation of the plain films of the right knee is no acute fracture. Ice was applied patient received Tylenol and will use an Javi wrap. Follow-up with primary care if not improving return if worsening or concerns Discharge Plan Triage Chief Complaint: Fall ED Provider: Cesar Mukherjee Dx/Rx/DC Orders Clinical Impression: Contusion of knee, right, Fall Instructions: ED Contusion, Lower Extremity Prescriptions: No Action atorvastatin 20 MG tablet 10 mg PO QHS RF: 0 levothyroxine 88 MCG tablet 100 mcg PO DAILY RF: 0 propranolol 10 MG tablet 10 mg PO DAILY RF: 0 primidone 250 MG tablet 250 mg PO BID RF: 0 lorazepam 1 MG tablet 1 mg PO BID PRN (Reason: Anxiety) RF: 0 propranolol 20 MG tablet 20 mg PO QHS RF: 0 latanoprost 2.5 ML drops 2.5 ml OP DAILY RF: 0 aspirin 81 MG tablet,chewable 81 mg PO DAILY@0800 RF: 0 warfarin 10 mg tablet 10 mg PO RF: 0 escitalopram oxalate 20 mg tablet 20 mg PO DAILY RF: 0 warfarin 10 MG tablet 15 mg PO MOTUWETHFRSA RF: 0 Primary Care Provider: Ilia Stone Referrals: Ilia Stone DO [Primary Care Provider] - 1 Week if not improving Disposition Disposition: Home, Self Care
--- NOTE | 2021-06-21 03:35 | RAD_ITS ---
EXAM: XR RIGHT KNEE COMPLETE, 4 OR MORE VIEWS : 1945 CLINICAL INDICATION: injury TECHNIQUE: Four or more views of the right knee. This report was created using [employer] report generation technology. COMPARISON: None. FINDINGS: BONES/JOINTS: Unremarkable. No acute fracture. No subluxation. Normal alignment. Preservation of the joint space. No sclerotic or destructive changes observed. SOFT TISSUES: Unremarkable. No soft tissue swelling or gas. No radiopaque foreign body. RAD/Knee 4 or More Views IMPRESSION: Negative right knee x-rays. at 0432 Reported and signed by: Timmy Cortez MD Electronically Signed: Timmy Cortez MD at 4:31 EDT Tel , Service support ,
[2021-06-21 04:05] VITALS: BP 136/60; PULSE 75; RESP 18; O2SAT 96
== END 2021-06-21 04:06 | disposition home or self-care (01) ==
PROVIDERS: Emergency Provider Emergency Medicine; PCP Preventive Medicine Occupational Medicine
DX: S80.01XA Contusion of right knee, initial encounter (principal); W01.0XXA Fall on same level from slipping, tripping and stumbling without subsequent striking against object, initial encounter; Y93.01 Activity, walking, marching and hiking; Y92.238 Other place in hospital as the place of occurrence of the external cause; Y99.8 Other external cause status; E78.00 Pure hypercholesterolemia, unspecified; E07.9 Disorder of thyroid, unspecified; M19.90 Unspecified osteoarthritis, unspecified site; F32.A Depression, unspecified; Z95.0 Presence of cardiac pacemaker; Z79.01 Long term (current) use of anticoagulants; Z79.82 Long term (current) use of aspirin; Z79.899 Other long term (current) drug therapy; Z87.891 Personal history of nicotine dependence; Z86.73 Personal history of transient ischemic attack (TIA), and cerebral infarction without residual deficits
CPT/HCPCS: 73564; 99283

== ENCOUNTER 2021-06-21 14:54 | Emergency (ER) | payer MEDICARE, OTHER, SELFPAY ==
[2021-06-21 14:56] VITALS: BP 140/84; PULSE 73; RESP 18; TEMP 36.7; O2SAT 98; BMI 23.0
--- NOTE | 2021-06-21 16:36 | EDS_ITS ---
HPI History of Present Illness Chief Complaint: Lower Extremity Injury Narrative Narrative: 75-year-old female presenting with right knee pain. Patient states that she fell while at the hospital last evening. Patient states that she does have pain in the knee when she bears weight. Patient has been ambulatory with some assistance from her but states it hurts to bear weight. She was seen last night in [place] ED and had an x-ray performed of the right knee which was negative for fracture. Patient was placed in an Javi wrap. She has been taking Tylenol for pain. Patient states that in follow-up she called her primary care physician who told her to come back to the emergency room for evaluation. [facility] Medical History Alcohol use Arthritis Cardiology follow-up encounter Depression Former smoker High cholesterol History of echocardiogram History of pacemaker History of steroid therapy History of stress test Hx of ovarian cyst Injury of head and neck Migraine headache Shortness of breath on exertion Sleep apnea Thyroid disease TIA (transient ischemic attack) Tremors of nervous system Wears glasses Home Medications atorvastatin 10 mg PO QHS 08/19/19 [History Last Taken Unknown] levothyroxine 100 mcg PO DAILY 08/19/19 [History Last Taken 04/02/21 07:30] lorazepam 1 mg PO BID PRN 08/19/19 [History Last Taken Unknown] primidone 250 mg PO BID 08/19/19 [History Last Taken 04/02/21 07:30] propranolol 10 mg PO DAILY 08/19/19 [History Last Taken Unknown] propranolol 20 mg PO QHS 08/19/19 [History Last Taken Unknown] aspirin 81 mg PO DAILY@0800 08/07/20 [History Last Taken 03/25/21] latanoprost 2.5 ml OP DAILY 08/07/20 [History Last Taken Unknown] escitalopram oxalate 20 mg PO DAILY 03/26/21 [History Last Taken 04/02/21 07:30] warfarin 10 mg PO 03/26/21 [History Last Taken Unknown] warfarin 15 mg PO MOTUWETHFRSA 03/26/21 [History Last Taken Unknown] lidocaine [Lidoderm] 1 patch TOPICAL DAILY PRN #1 ea 06/21/21 [Rx Last Taken Unknown] Allergy/AdvReac Type Severity Reaction Status Date / Time diazepam [From Valium] Allergy Vomiting Verified 06/21/21 14:55 fentanyl Allergy Other Verified 06/21/21 14:55 nitrofurantoin Allergy Unknown Verified 06/21/21 14:55 [From Macrodantin] strawberry Allergy Anaphylaxis Verified 06/21/21 14:55 Sulfa (Sulfonamide Allergy Unknown Verified 06/21/21 14:55 Antibiotics) hydrocodone [From Vicodin] AdvReac Nausea/Vom/ Verified 06/21/21 14:55 Diarrhea Surgical History History of cardiac catheterization History of heart surgery History of open heart surgery Hx laparoscopic cholecystectomy Hx of appendectomy Social History Smoking Status: Former smoker substance use type: does not use ROS ROS ED Constitutional Constitutional ED: Denies fever(s) or subjective Eyes Eyes: Denies blurry vision or change in vision ENT ENT ED: Denies rhinorrhea or sore throat Cardiovascular Cardiovascular: Denies chest pain Respiratory/Chest Respiratory/Chest: Denies cough or dyspnea Gastrointestinal Gastrointestinal: Denies abdominal pain, nausea or vomiting Genitourinary Genitourinary ED: Denies dysuria or hematuria Musculoskeletal Musculoskeletal: Reports other Details: Right knee pain ; Denies myalgias Integumentary Denies rash Neurologic Neurologic: Denies headache(s), paresthesias or weakness EXAM Physical Exam Const Vital Signs: 06/21/21 14:56 Temperature 98.1 F Temperature Source Temporal Pulse Rate 73 Respiratory Rate 18 Blood Pressure 140/84 H Blood Pressure Mean 102 Pulse Ox 98 Oxygen Delivery Method Room Air Positive well nourished General Appearance ED: NAD HEENT normocephalic and atraumatic Eyes PERRL Resp normal respiratory effort and clear to auscultation bilaterally Cardio regular rate and regular rhythm Extremity Extremity Narrative: Tenderness to palpation over the right patella. There is a small soft tissue area proximal to the medial joint line which is tender. This does not appear to be fluctuant like a abscess. Extensor mechanism is intact. Patient has flexion and in extension maintained. Neuro oriented x3 and CN's II-XII intact bilaterally Sensorium / Orientation: alert Psych mental status grossly normal Skin Lesions: no lesions Rashes: no rashes MDM MDM MDM Narrative Medical decision making narrative: Patient had x-ray of the right knee last evening. This was reviewed and is negative for acute fracture or subluxation. I did speak with her primary care physician Dr. León because she states she was referred back to the emergency room when she was trying to follow-up with him. He states that he is unsure why she was sent to the emergency room. I do not believe the patient needs repeat imaging. She is ambulating with assistance from her has not fallen. I did ambulate her with a walker and she is s table. I counseled her to take Tylenol and ice and elevate her right leg. I do not feel comfortable giving her narcotics as she is already fallen. Patient's primary care physician will follow up with her to ensure resolution. Impression: 1. Mechanical fall 2. Right knee contusion Discharge Plan Triage Chief Complaint: Lower Extremity Injury ED Provider: Adonay Singer Dx/Rx/DC Orders Instructions: ED Contusion, Lower Extremity Prescriptions: New lidocaine [Lidoderm] 5 % adhesive patch,medicated 1 patch topical DAILY PRN (Reason: pain) Qty: 1 RF: 0 No Action atorvastatin 20 MG tablet 10 mg PO QHS RF: 0 levothyroxine 88 MCG tablet 100 mcg PO DAILY RF: 0 propranolol 10 MG tablet 10 mg PO DAILY RF: 0 primidone 250 MG tablet 250 mg PO BID RF: 0 lorazepam 1 MG tablet 1 mg PO BID PRN (Reason: Anxiety) RF: 0 propranolol 20 MG tablet 20 mg PO QHS RF: 0 latanoprost 2.5 ML drops 2.5 ml OP DAILY RF: 0 aspirin 81 MG tablet,chewable 81 mg PO DAILY@0800 RF: 0 warfarin 10 mg tablet 10 mg PO RF: 0 escitalopram oxalate 20 mg tablet 20 mg PO DAILY RF: 0 warfarin 10 MG tablet 15 mg PO MOTUWETHFRSA RF: 0 Primary Care Provider: Ilia Stone Referrals: Ilia Stone DO [Primary Care Provider] - Disposition Disposition: Home, Self Care
[2021-06-21] MEDS: Lidocaine 5% Patch 1 PATCH TOPICAL (17:27)
[2021-06-21] MEDS: Acetaminophen 500 MG Tablet 1000 MG PO (17:27)
== END 2021-06-21 17:53 | disposition home or self-care (01) ==
PROVIDERS: Emergency Provider Student in an Organized Health Care Education/Training Program; PCP Preventive Medicine Occupational Medicine
DX: S80.01XA Contusion of right knee, initial encounter (principal); W18.09XA Striking against other object with subsequent fall, initial encounter; Y93.01 Activity, walking, marching and hiking; Y92.238 Other place in hospital as the place of occurrence of the external cause; Y99.8 Other external cause status; E78.00 Pure hypercholesterolemia, unspecified; E07.9 Disorder of thyroid, unspecified; M19.90 Unspecified osteoarthritis, unspecified site; F32.A Depression, unspecified; Z95.0 Presence of cardiac pacemaker; Z79.01 Long term (current) use of anticoagulants; Z79.82 Long term (current) use of aspirin; Z79.899 Other long term (current) drug therapy; Z87.891 Personal history of nicotine dependence; Z86.73 Personal history of transient ischemic attack (TIA), and cerebral infarction without residual deficits
CPT/HCPCS: 73564; 99283